=== PATIENT | male | born 1935 | race Caucasian/White ===

== ENCOUNTER 2016-12-18 11:00 | Day surgery (SDC) | payer MEDICARE, BC ==
[2016-12-18] MEDS ORDERED: Sodium Chloride 0.9% 20 ML ONE (11:17)
[2016-12-18] MEDS ORDERED: Furosemide 20 MG/2 ML VIAL SLOW IVP SCH (13:30)
[2016-12-18 18:05] VITALS: BP 127/60; TEMP 98.3
== END 2016-12-18 18:15 ==
LOC: ONC/OP 11:00
PROVIDERS: ATTEND Psychiatry & Neurology Psychiatry
PROC: 30233N1 Transfusion of Nonautologous Red Blood Cells into Peripheral Vein, Percutaneous Approach (ICD-10-PCS; principal; 2016-12-18)
DX: D64.9 Anemia, unspecified (principal); I48.0 Paroxysmal atrial fibrillation; I25.10 Atherosclerotic heart disease of native coronary artery without angina pectoris; I10 Essential (primary) hypertension; I05.0 Rheumatic mitral stenosis; E03.9 Hypothyroidism, unspecified; I42.9 Cardiomyopathy, unspecified; K21.9 Gastro-esophageal reflux disease without esophagitis; Z91.041 Radiographic dye allergy status; Z91.013 Allergy to seafood; Z79.899 Other long term (current) drug therapy; E78.5 Hyperlipidemia, unspecified; Z95.5 Presence of coronary angioplasty implant and graft; Z95.0 Presence of cardiac pacemaker; Z95.1 Presence of aortocoronary bypass graft
CPT/HCPCS: 36415; 36430; 86850; 86900; 86901; 96374; A4216; J1940; P9016

== ENCOUNTER 2016-12-28 09:11 | Day surgery (SDC) | payer MEDICARE, BC ==
[2016-12-28] MEDS ORDERED: Sodium Chloride 0.9% 20 ML ONE (09:22)
[2016-12-28] MEDS ORDERED: Furosemide 20 MG/2 ML VIAL SLOW IVP SCH (15:45)
[2016-12-28 17:42] VITALS: BP 148/66; TEMP 97.6
== END 2016-12-28 17:51 | disposition home or self-care (01) ==
LOC: ONC/OP 09:11
PROVIDERS: ATTEND Family Medicine
PROC: 30233N1 Transfusion of Nonautologous Red Blood Cells into Peripheral Vein, Percutaneous Approach (ICD-10-PCS; principal; 2016-12-28)
DX: D64.9 Anemia, unspecified (principal); I48.0 Paroxysmal atrial fibrillation; K27.9 Peptic ulcer, site unspecified, unspecified as acute or chronic, without hemorrhage or perforation; Q27.33 Arteriovenous malformation of digestive system vessel; I25.10 Atherosclerotic heart disease of native coronary artery without angina pectoris; I05.0 Rheumatic mitral stenosis; E03.9 Hypothyroidism, unspecified; K21.9 Gastro-esophageal reflux disease without esophagitis; I11.9 Hypertensive heart disease without heart failure; Z79.02 Long term (current) use of antithrombotics/antiplatelets; Z79.82 Long term (current) use of aspirin; Z79.899 Other long term (current) drug therapy; Z95.818 Presence of other cardiac implants and grafts; Z95.0 Presence of cardiac pacemaker; Z95.1 Presence of aortocoronary bypass graft; Z90.49 Acquired absence of other specified parts of digestive tract; Z98.890 Other specified postprocedural states; Z91.013 Allergy to seafood; Z91.041 Radiographic dye allergy status; Z91.81 History of falling; Z87.81 Personal history of (healed) traumatic fracture; Z87.891 Personal history of nicotine dependence
CPT/HCPCS: 36415; 36430; 86850; 86900; 86901; 86922; 96374; A4216; J1940; P9016

== ENCOUNTER 2017-01-12 18:28 | Emergency (ER) | payer MEDICARE, BC ==
[2017-01-12 19:16] LABS: #Eosinphils 0.1 thou/uL (0.0-0.7); #Lymphocytes 1.7 thou/uL (1.20-3.40); %Basophils 0.2 % (0.0-1.0); %Eosinophils 2.2 % (0.0-10.0); %Lymphocytes 25.3 % (21.0-51.0); Hematocrit 22.9 % (42.0-52.0); Mean Platelet Volume 8.5 fL (7.4-10.4); Red Blood Cell (RBC) Count 2.44 mill/uL (4.70-6.10); White Blood Cell (WBC) Count 6.8 thou/uL (4.8-10.8)
[2017-01-12 19:36] LABS: ALT (SGPT) 25 U/L (8-55); AST (SGOT) 37 U/L (5-34); Alkaline Phosphatase 105 U/L (40-150); Anion Gap 12 mmol/L (10-20); BUN (Urea Nitrogen) 28 mg/dL (8.4-25.7); Bilirubin, Total 0.5 mg/dL (0.2-1.2); Calc. Creatinine Clearance 0 mL/min (70-130); Calcium 8.4 mg/dL (7.8-10.44); Carbon Dioxide 25 mmol/L (23-31); Chloride 98 mmol/L (98-107); Estimated GFR-MDRD 41; Globulin 2.9 g/dL (2.4-3.5); Protein, Total 6.3 g/dL (5.8-8.1)
[2017-01-12 20:15] LABS: Troponin I 0.011 ng/mL (< 0.028)
[2017-01-12 22:55] LABS: Bilirubin Negative (Negative); Blood, Urine Negative (Negative); Glucose, Urine (Dipstick) Negative (Negative); Ketone, Urine Negative (Negative); Nitrite Negative (Negative); Protein, Urine (Dipstick) Negative (Neg-Trace); Urobilinogen 0.2 mg/dL (0.2-1.0)
== END 2017-01-13 01:40 | disposition home or self-care (01) ==
LOC: ERS 18:28
DX: D64.9 Anemia, unspecified (principal); I25.2 Old myocardial infarction; E78.5 Hyperlipidemia, unspecified; I10 Essential (primary) hypertension; Z87.891 Personal history of nicotine dependence; Z79.82 Long term (current) use of aspirin; Z79.899 Other long term (current) drug therapy
CPT/HCPCS: 36415; 36430; 80053; 81003; 82553; 84484; 85610; 85730; 86850; 86900; 86901; 93005; P9016

== ENCOUNTER 2017-01-15 08:22 | Inpatient (IN) | payer MEDICARE, BC ==
[2017-01-15 10:34] LABS: #Eosinphils 0.1 thou/uL (0.0-0.7); #Lymphocytes 1.7 thou/uL (1.20-3.40); #Monocytes 0.8 thou/uL (0.11-0.59); #Neutrophils 4.8 thou/uL (1.40-6.50); %Basophils 0.5 % (0.0-1.0); %Eosinophils 1.8 % (0.0-10.0); %Lymphocytes 22.6 % (21.0-51.0); %Monocytes 10.2 % (0.0-10.0); Hematocrit 25.4 % (42.0-52.0); Mean Platelet Volume 8.2 fL (7.4-10.4); Red Blood Cell (RBC) Count 2.69 mill/uL (4.70-6.10); White Blood Cell (WBC) Count 7.4 thou/uL (4.8-10.8)
[2017-01-15 10:43] LABS: PTT 31.7 SEC (22.9-36.1); Prothrombin Time 14.3 SEC (12.0-14.7)
[2017-01-15 10:52] LABS: ALT (SGPT) 21 U/L (8-55); AST (SGOT) 32 U/L (5-34); Alkaline Phosphatase 125 U/L (40-150); Anion Gap 10 mmol/L (10-20); BUN (Urea Nitrogen) 16 mg/dL (8.4-25.7); Bilirubin, Total 0.4 mg/dL (0.2-1.2); Calc. Creatinine Clearance 0 mL/min (70-130); Calcium 8.4 mg/dL (7.8-10.44); Carbon Dioxide 25 mmol/L (23-31); Chloride 102 mmol/L (98-107); Estimated GFR-MDRD 72; Globulin 2.8 g/dL (2.4-3.5); Protein, Total 6.1 g/dL (5.8-8.1)
--- NOTE | 2017-01-15 11:08 | RAD ---
LEFT HIP 2 VIEWS: Date: 01/15/17 HISTORY: Fall. COMPARISON: None. FINDINGS: Exam is severely limited due to technique. There appears to be a fracture of the acetabulum with clif tabular protrusion. 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 There is also possibly a fractur e through the basicervical femoral neck. Cortical irregularity is noted of the superior and inferior pubic rami. IMPRESSION: 1. Limited examination. There is concern for fracture of the basicervical femoral neck as well as o f the left acetabulum. There is also some cortical indistinctness of the superior inferior pubic valentino i. CT may be helpful. 2. Severe degenerative disease of the left hip. 3. The left acetabular fracture can be seen on the 10/19/16 study. The femoral neck fracture appears new. POS: [facility]
--- NOTE | 2017-01-15 13:22 | RAD ---
RADIOGRAPH LEFT KNEE 2 VIEWS: Date: 01/15/17 HISTORY: 81-year-old male status post acute traumatic injury to the left knee, from fall. FINDINGS: In general, at least a 3 view, and preferably a 4 view, radiograph should be obtained for trauma, to increase the sensitivity for the detection of nondisplaced and mildly displaced fracture. No grossl y displaced fracture is identified. There is diffuse osteopenia. Moderate to severe joint space narr owing at the medial compartment with only mild bony hypertrophy. Mild joint space narrowing at the l ateral compartment. No large osteophytes. IMPRESSION: 1. No fracture identified. 2. Osteopenia. 3. High grade joint space narrowing in the medial compartment. POS: [facility]
[2017-01-15] MEDS ORDERED: Ondansetron ODT 4 MG TAB SL PRN (13:43)
[2017-01-15] MEDS ORDERED: Ondansetron HCl/PF 4 MG/2 ML Vial IVP PRN ×2 (13:43→14:20)
[2017-01-15] MEDS ORDERED: Dextrose 50% Abboject 50 ML SYRINGE SLOW IVP PRN (14:20)
[2017-01-15] MEDS ORDERED: Dextrose 5% in Water 1,000 ML IV PRN (14:20)
[2017-01-15] MEDS ORDERED: Ondansetron ODT 4 MG TAB PO PRN (14:20)
[2017-01-15] MEDS ORDERED: HYDROcodone/Acetaminophen 10/325 mg Tablet PO PRN (14:20)
[2017-01-15] MEDS ORDERED: Morphine Sulfate 2 MG/ML SYRINGE IVP PRN (14:20)
[2017-01-15] MEDS ORDERED: Insulin Regular 300 UNITS/3 ML VIAL SC PRN (14:20)
[2017-01-15] MEDS: HYDROcodone/Acetaminophen 10/325 mg Tablet PO PRN (15:37)
[2017-01-15] MEDS: Ketorolac Tromethamine 30 MG/ML VIAL IVP SCH (18:52)
[2017-01-15] MEDS: traMADol HCl 50 MG TAB PO SCH (18:54)
--- NOTE | 2017-01-15 20:58 | HP ---
REQUESTING PHYSICIAN: Lakisha Salgado MD ATTENDING SURGEON: Lex Levin DO CONSULTATIONS: Orthopedics, Robinson Castle M.D. HISTORY OF PRESENT ILLNESS: The patient is an 81-year-old man who has significant multiple medical problems, who stays at home with his son and his and this morning, he was noted to have rolled off the couch, landing on his left knee, causing immediate pain to his left knee and more so to his left hip. The patient was brought to the emergency department, evaluated and examined and noted to have a right femoral neck fracture at which time we were asked to evaluate the patient for admission and obtain an orthopedic consultation. ALLERGIES: IODINE. CURRENT MEDICATIONS: Amiodarone, nitroglycerin, aspirin, atorvastatin, Coreg, iron, vitamin C, Lasi x, levothyroxine, lisinopril, potassium, and Brilinta. PAST SURGICAL HISTORY: Cardiac pacemaker placement, valve replacement, hyperlipidemia, hypertension . The patient wears a LifeVest. In addition to his pacemaker, he has implanted his pacemaker. SOCIAL HISTORY: The patient quit smoking more than 10 years ago. Drinks almost daily per reports u p to 5 drinks per day. Denies drug use. FAMILY MEDICAL HISTORY: Coronary artery disease and hypertension. REVIEW OF SYSTEMS: A ten-point review of system is negative unless otherwise stated. PHYSICAL EXAMINATION: VITAL SIGNS: Temperature is 98.4, heart rate 74, blood pressure 136/60, respirations 20, oxygen sat uration is 96% on room air. GENERAL: The patient is resting in the hospital bed in the emergency department with a chief compla int of left hip pain, but he is alert and oriented x3. His Marvin Coma Scale is 15. HEENT: Head is normocephalic and atraumatic. Eyes: Extraocular movements are intact. PERRLA bila terally. Ears are atraumatic without discharge. Nose is atraumatic without discharge. Oropharynx is clear. NECK: Nontender. Trachea is midline. No JVD. CHEST: Clear to auscultation. HEART: Has a regular rhythm with a notable holosystolic murmur. ABDOMEN: Soft, flat and nontender. EXTREMITIES: Neurovascularly intact x4. The patient has tenderness to palpation to the left hip. BACK: Nontender and atraumatic. LABORATORY FINDINGS: White blood cell count 7.4, hemoglobin 8.1, platelets 192, hematocrit 25.4. S odium 133, potassium 4.1, chloride 102, CO2 of 25, BUN 16, creatinine 0.99, glucose 103. LFTs are u nremarkable. PT 14, INR 1.1, PTT 32. RADIOGRAPHS: Views of the left hip show a fracture of the base of the femoral neck and a left aceta bular fracture. When compared to an earlier radiograph, the patient had the acetabular fracture adina t was shown on the radiographs of 10/19/2016 with the femoral neck fracture appears new. Radiograph s of the left knee showed no fracture. ASSESSMENT AND PLAN: 1. Status post ground level fall. 2. Left femoral neck fracture. 3. Multiple cardiac-related comorbidities. 4. Acute traumatic pain. PLAN: Will be to admit the patient to the surgical floor. Due to his multiple comorbidities, he is not the best surgical candidate. The patient is known to our service before and was unable to have surgical repair secondary to his cardiac history. We will ask Dr. Castle to evaluate the patien t and give us his input risk versus benefit of surgical repair. The evaluation, examination, radiog raphic and laboratory findings were done with Dr. Levin in the emergency room and he also discussed the plan with the family and answered their questions at that time.
[2017-01-15] MEDS ORDERED: FLU VACC TS2017-18 (>65YR) 0.5 ML SYRINGE IM ONE (21:00)
[2017-01-15] MEDS: TICAGRELOR 90 MG TABLET PO SCH (21:12)
[2017-01-15] MEDS: Furosemide 40 MG TAB PO SCH (21:12)
--- NOTE | 2017-01-15 21:29 | CON ---
DATE OF CONSULTATION: 01/15/2017 CHIEF COMPLAINT: Left hip pain. HISTORY OF PRESENT ILLNESS: Mr. Costello is an 81-year-old male who has fallen this morning. He pepe ded on his left side. He had immediate pain. He was unable to ambulate. He was taken to the emerg ency department. An acute femoral neck fracture was identified. The patient has a history of left acetabulum fracture on the left side over the last several months as well. He has been ambulating o n a walker. He has severe heart disease and has a severe risk of cardiac complication with surgery. He denies any active chest pain or other symptoms. He is currently comfortable in bed. He was ad mitted recently for a gastrointestinal bleed as well. REVIEW OF SYSTEMS: Positive for mild left hip pain as per HPI, otherwise, negative 10-point review of systems. PAST MEDICAL HISTORY: 1. Previous left acetabulum fracture, nonoperative management. 2. Cardiomyopathy, status post pacemaker placement. 3. Coronary artery disease with a history of coronary artery bypass graft. 4. Hypothyroidism. 5. Gastroesophageal reflux disease. 6. Hyperlipidemia. 7. Hypertension. PAST SURGICAL HISTORY: Coronary artery bypass graft and recent colonoscopy. FAMILY MEDICAL HISTORY: Hypertension. SOCIAL HISTORY: The patient denies tobacco, alcohol, or drug use. PHYSICAL EXAMINATION: VITAL SIGNS: Temperature is 98.4, pulse 74, respiratory rate 20, oxygen saturation 97%. GENERAL: He is alert, sitting upright, in no apparent distress. HEENT: Normocephalic, atraumatic. RESPIRATORY: Breathing comfortably. ABDOMEN: Soft, nontender, and nondistended. MUSCULOSKELETAL: The patient's left hip has mild pain with motion. He is sitting with the hip in a flexed position on pillows. He is neurovascularly intact in the foot and ankle distally. SKIN: Intact. IMAGES: X-rays of the left hip demonstrate an acute basicervical femoral neck fracture. He has saadia dence of a chronic acetabulum fracture on the left hip. IMPRESSION: Femoral neck fracture in an elderly male with severe heart disease. PLAN: At this point, I have discussed with the patient. He wants to avoid surgery as much as possi ble. In fact, he says today that he strictly does not want surgery. I have reviewed other options which will include pain control and nonweightbearing on the left leg. Unfortunately, he will likely be unable to ambulate but could mobilize to a wheelchair and minimally mobilize for transfers. He wants to proceed with this plan. He is worried rightly so that he would have cardiac complications with general anesthesia. He can have adequate pain control. He can have positioning for comfort. There is no certain restriction on the position of his leg. He will likely need to be placed for pa in control and help with activities of daily living until his hip is improved. We will continue to follow.
[2017-01-16] MEDS: Ketorolac Tromethamine 30 MG/ML VIAL IVP SCH ×2 (00:57→05:21)
[2017-01-16] MEDS: traMADol HCl 50 MG TAB PO SCH ×5 (00:58→23:20)
[2017-01-16 07:00] LABS: Anion Gap 9 mmol/L (10-20); BUN (Urea Nitrogen) 17 mg/dL (8.4-25.7); Calc. Creatinine Clearance 0 mL/min (70-130); Calcium 7.8 mg/dL (7.8-10.44); Carbon Dioxide 25 mmol/L (23-31); Chloride 103 mmol/L (98-107); Estimated GFR-MDRD 73; Magnesium 1.5 mg/dL (1.6-2.6); Phosphorus 3.8 mg/dL (2.3-4.7)
[2017-01-16 07:50] LABS: Hematocrit 20.5 % (42.0-52.0); Mean Platelet Volume 7.6 fL (7.4-10.4); Red Blood Cell (RBC) Count 2.16 mill/uL (4.70-6.10); White Blood Cell (WBC) Count 5.2 thou/uL (4.8-10.8)
[2017-01-16 08:17] LABS: Band 4 % (5-11); Hypochromia SLIGHT = 6-15 cells (100X) (0-5/hpf); Neutrophil 59 % (42-75); Polychromasia SLIGHT = 2-3 cells (100X) (0-2/hpf)
[2017-01-16] MEDS: Levothyroxine Sodium 25 MCG TAB PO SCH (08:33)
[2017-01-16] MEDS: Aspirin 81 mg Enteric Coated Tablet PO SCH (08:47)
[2017-01-16] MEDS: Potassium Chloride 20 MEQ TAB PO SCH ×2 (08:47→17:06)
[2017-01-16] MEDS: Carvedilol 3.125 MG TAB PO SCH ×2 (08:47→17:06)
[2017-01-16] MEDS: Furosemide 40 MG TAB PO SCH ×2 (08:48→20:08)
[2017-01-16] MEDS: Lisinopril 5 MG TAB PO SCH (08:50)
[2017-01-16] MEDS: Ferrous Sulfate 325 MG TAB PO SCH (08:51)
[2017-01-16] MEDS: Ascorbic Acid 500 mg Chewable Tablet PO SCH (08:52)
[2017-01-16] MEDS: TICAGRELOR 90 MG TABLET PO SCH ×2 (08:53→20:08)
[2017-01-16] MEDS: Atorvastatin Calcium 20 MG TAB PO SCH (09:05)
[2017-01-16] MEDS: HYDROcodone/Acetaminophen 10/325 mg Tablet PO PRN (09:19)
--- NOTE | 2017-01-16 12:10 | PRG-2 ---
DATE OF SERVICE: 01/16/2017 SUBJECTIVE: This is an 81-year-old male that is status post fall from couch and found to have a lef t femoral neck fracture. Today, he reports doing well, was up working with PT, OT standing and nonw eightbearing. Reports pain being well controlled. He denies any feeling weak or dizzy or lighthead ed. The patient will likely need placement. He said he has been to [facility] before and wishes to go back to [facility]. No other concerns or complaints at this time. OBJECTIVE: VITAL SIGNS: Temperature is 98.1, pulse is 68, respirations 18, O2 sats 95% on room air, blood pres sure is 97/55. GENERAL: Alert and oriented x3, atraumatic, normocephalic. Resting in bed. RESPIRATORY: Clear to auscultation bilaterally. Symmetric chest expansion. Nonlabored breathing. CARDIOVASCULAR: He has a regular rhythm with a notable holosystolic murmur. ABDOMEN: Soft, flat, nontender. No masses or distention noted. EXTREMITIES: Neurovascularly intact x4 and able to move all extremities. NEURO: No new focal neuro deficit. LABORATORY DATA: White blood cell count was 5.2, hemoglobin was 6.5, hematocrit 20.5, platelet coun t was 152. MCV is 95.1. Sodium was 133, potassium 3.9, chloride was 103, carbon dioxide was 25, BU N was 17, creatinine 0.98, glucose 106, calcium 7.8, phosphorus 2.8, and magnesium 1.5. No new images to be reviewed at this time. ASSESSMENT AND PLAN: 1. Status post ground level fall. 2. Left femoral neck fracture. 3. Multiple cardiac related comorbidities. 4. Traumatic pain. 5. Anemia. Due to the patient's heart history, he is not a good candidate for surgery, so we will go with nonop erative treatment at this time per Orthopedic Surgery. We will continue him on current pain regimen and assess pain and treat as needed. We will continue to monitor vital signs. The patient's hemoglobin was low at 6.5. We will transfuse him with 1 unit of blood. We will repla ce his electrolytes. We will continue to check labs as needed and replace as needed. The patient w ishes to go back to [facility], so will await placement for him to see if he can go back to [facility] for some rehab and long-term care as he is nonoperative treatment and will need time to heal with 2 4-hour care. The patient was seen and plan of care was discussed with Dr. Lex Levin.
--- NOTE | 2017-01-16 16:56 | PQF ---
CLINICAL DOCUMENTATION IMPROVEMENT CLARIFICATION FORM: ICD-10 Updated PLEASE DO AN ADDENDUM TO THE PROGRESS NOTE WITH ANY DOCUMENTATION UPDATES OR ADDITIONS AND CARRY THROUGH TO DC SUMMARY. THANK YOU. DATE: 01/16/17 ATTN: Dr. Levin Please exercise your independent, professional judgment in responding to the clarification form. Clinical indicators are provided on the bottom of this form for your review Please check appropriate box(s): [x ] Acute blood loss anemia [ ] Chronic Anemia: [ ] Blood loss [ ] Hemolytic [ ] Simple [ ] Other [ ] Anemia of Chronic Disease (please specify) [ ] Other diagnosis [ ] Unable to determine In addition, please specify: Present on Admission (POA): [ ] Yes [ ] No [ ] Unable to determine For continuity of documentation, please document condition throughout progress notes and discharge summary. Thank You. CLINICAL INDICATORS - SIGNS / SYMPTOMS / LABS H&P: HGB 8.1 HCT 25.4 PN 01/16: HGB 6.5 HCT 20.5 ANEMIA PT'S HEMOGLOBIN WAS LOW AT 6.5. WILL TRANSFUSE HIM WITH 1 UNIT OF BLOOD. RISKS: H&P: LEFT FEMORAL NECK FRACTURE. TREATMENT: CPOE 01/16: PACKED CELLS. (This form is maintained as a part of the permanent medical record) 2014 [employer] All Rights Reserved Lashaun Garcia RN, BSN [email or web address] Office: [phone] [facility]ITAL[facility]
[2017-01-17] MEDS: traMADol HCl 50 MG TAB PO SCH ×3 (05:35→17:58)
[2017-01-17 06:06] LABS: #Eosinphils 0.3 thou/uL (0.0-0.7); #Lymphocytes 1.4 thou/uL (1.20-3.40); #Neutrophils 6.2 thou/uL (1.40-6.50); %Basophils 0.1 % (0.0-1.0); %Lymphocytes 15.7 % (21.0-51.0); Hematocrit 24.4 % (42.0-52.0); White Blood Cell (WBC) Count 8.8 thou/uL (4.8-10.8)
[2017-01-17] MEDS: Lisinopril 5 MG TAB PO SCH (09:00)
[2017-01-17] MEDS: Aspirin 81 mg Enteric Coated Tablet PO SCH (11:05)
[2017-01-17] MEDS: Potassium Chloride 20 MEQ TAB PO SCH ×2 (11:06→17:00)
[2017-01-17] MEDS: Atorvastatin Calcium 20 MG TAB PO SCH (11:06)
[2017-01-17] MEDS: Levothyroxine Sodium 25 MCG TAB PO SCH (11:06)
[2017-01-17] MEDS: Ascorbic Acid 500 mg Chewable Tablet PO SCH (11:06)
[2017-01-17] MEDS: Ferrous Sulfate 325 MG TAB PO SCH (11:06)
[2017-01-17] MEDS: TICAGRELOR 90 MG TABLET PO SCH (11:07)
[2017-01-17] MEDS: Furosemide 40 MG TAB PO SCH (11:07)
[2017-01-17] MEDS: Carvedilol 3.125 MG TAB PO SCH ×2 (11:07→17:58)
--- NOTE | 2017-01-17 12:27 | PRG ---
DATE OF SERVICE: 01/17/2017 SUBJECTIVE: No acute events overnight. The patient received 1 unit of blood and has responded appr opriately. No other issues at this time. The patient reports pain with movement, but otherwise it is controlled with medications that have been given. OBJECTIVE: VITAL SIGNS: Temperature 98.4, heart rate 58, respiratory rate 16, O2 saturation is 95% on room air , blood pressure 121/65. GENERAL: Alert and oriented x3. HEENT: Atraumatic and normocephalic. Resting in bed. RESPIRATORY: Clear bilaterally to auscultation. Symmetric chest rise and full. Nonlabored breathi ng. CARDIOVASCULAR: Regular rate and rhythm with notable holosystolic murmur. ABDOMEN: Soft, flat, nontender. No masses or distension. EXTREMITIES: Neurovascularly intact x4. Moves all 4. LABORATORY: CBC showed white count 8.8, hemoglobin 7.9, hematocrit 24.4, platelet count 167. ASSESSMENT AND PLAN: 1. Status post ground level fall. 2. Left femoral neck fracture. 3. Multiple cardiac related comorbidities. 4. Traumatic pain. 5. Anemia. Due to the patient's heart history he is not a good candidate for surgery so we will go for nonopera tive treatment at this time per Orthopedic Surgery. We will continue with his current pain regimen, assess pain and treat as needed. Continue to monitor his vital signs. We have stabilized hemoglob in at 7.9. We have initiated bowel regimen for bowel movement. At this time we are awaiting rehab clearance for discharge. The patient has been seen by Dr. Levin at bedside and he agrees with the hannah coleman plan.
[2017-01-17] MEDS ORDERED: Polyethylene Glycol 3350 17 GM Packet PO SCH (14:00)
[2017-01-17] MEDS ORDERED: Senokot S 8.6-50 MG TAB PO SCH ×2 (14:00→21:00)
[2017-01-17 15:47] VITALS: BP 116/58; TEMP 98.5
[2017-01-18] MEDS ORDERED: Polyethylene Glycol 3350 17 GM Packet PO SCH (09:00)
--- NOTE | 2017-01-18 11:13 | DIS ---
DATE OF ADMISSION: 01/15/2017 DATE OF DISCHARGE: 01/17/2017 FINAL DIAGNOSES: 1. Status post fall off a couch. 2. Femoral neck fracture. 3. Severe heart disease. 4. History of cardiomyopathy. 5. Gastroesophageal reflux disease. 6. Hypertension. HOSPITAL COURSE: The patient was admitted for pain control and was noted that the patient had a sig nificant cardiac history and was not a good candidate for surgery. The patient was then referred ov er to rehabilitation. At that time, the patient was accepted in the rehab and sent over. Dr. Scott ashraf noted that the patient is not a good candidate for surgery and then deferred the surgery. The patient then was cleared for discharge on 01/17/[address] Levin. DISCHARGE DISPOSITION: To inpatient rehabilitation. FOLLOWUP APPOINTMENTS: With Dr. Castle in 2-4 weeks. DISCHARGE CONDITION: Fair. DISCHARGE MEDICATIONS: Will be reflected of his current MAR. This is merely a trauma discharge summary, please refer to the chart for further information.
== END 2017-01-17 18:29 | DRG 536 ==
LOC: ERS 08:22 → SURG B 11:50
PROVIDERS: ADMIT Surgery; ATTEND Surgery
PROC: 30233N1 Transfusion of Nonautologous Red Blood Cells into Peripheral Vein, Percutaneous Approach (ICD-10-PCS; principal; 2017-01-16)
DX: S72.042A Displaced fracture of base of neck of left femur, initial encounter for closed fracture (principal); I42.9 Cardiomyopathy, unspecified; Z95.1 Presence of aortocoronary bypass graft; D62 Acute posthemorrhagic anemia; G89.11 Acute pain due to trauma; W08.XXXA Fall from other furniture, initial encounter; S32.402 Unspecified fracture of left acetabulum; R01.1 Cardiac murmur, unspecified; I25.10 Atherosclerotic heart disease of native coronary artery without angina pectoris; Z95.0 Presence of cardiac pacemaker; Z95.2 Presence of prosthetic heart valve; I10 Essential (primary) hypertension; K21.9 Gastro-esophageal reflux disease without esophagitis; M25.562 Pain in left knee; E78.5 Hyperlipidemia, unspecified; Z87.891 Personal history of nicotine dependence; E03.9 Hypothyroidism, unspecified
CPT/HCPCS: 36415; 36416; 36430; 80048; 80053; 81003; 82553; 83735; 84100; 84484; 85025; 85610; 85730; 86850; 86900; 86901; 93005; 94760; 96361; 96374; A4216; G8978-GP-CM; G8979-GP-CK; G8987-GO-CK; G8988-GO-CI; J1885; J2270; P9016

== ENCOUNTER 2017-02-02 16:57 | Inpatient (IN) | payer MEDICARE, BC ==
[2017-02-02] MEDS ORDERED: HYDROcodone/Acetaminophen 10/325 mg Tablet ONE (17:25)
[2017-02-02 19:22] LABS: #Eosinphils 0.1 thou/uL (0.0-0.7); #Lymphocytes 1.5 thou/uL (1.20-3.40); #Neutrophils 5.3 thou/uL (1.40-6.50); %Basophils 0.2 % (0.0-1.0); %Eosinophils 0.8 % (0.0-10.0); %Lymphocytes 19.5 % (21.0-51.0); %Monocytes 12.6 % (0.0-10.0); Hematocrit 30.4 % (42.0-52.0); Mean Platelet Volume 7.1 fL (7.4-10.4); Red Blood Cell (RBC) Count 3.34 mill/uL (4.70-6.10); White Blood Cell (WBC) Count 7.9 thou/uL (4.8-10.8)
[2017-02-02 19:29] LABS: Prothrombin Time 14.7 SEC (12.0-14.7)
[2017-02-02 19:30] LABS: PTT 31.5 SEC (22.9-36.1)
--- NOTE | 2017-02-02 19:40 | RAD ---
TWO VIEWS OF THE LEFT HIP 02/02/17 COMPARISON: 01/15/17 HISTORY: Trauma, pain. FINDINGS: There is a fracture involving the acetabular roof on the left with approximately 1.2 cm of distracti on, similar when compared to the prior exam. The obliquely oriented fracture of the left femoral nec k is again seen. It is now displaced significantly, with the distal fracture fragment displaced 2 cm laterally and demonstrating significant impaction in the 4-5 cm range. There is no evidence for dis location. IMPRESSION: Obliquely oriented fracture at the base of the left femoral neck with displacement, markedly worsene d since the prior exam. A fracture with significant displacement is seen in the region of the acetab ular roof as well, also seen on prior imaging. Orthopedic consultation is advised. POS: [facility]
[2017-02-02 19:42] LABS: ALT (SGPT) 149 U/L (8-55); AST (SGOT) 171 U/L (5-34); Alkaline Phosphatase 173 U/L (40-150); Anion Gap 14 mmol/L (10-20); BUN (Urea Nitrogen) 20 mg/dL (8.4-25.7); Bilirubin, Total 0.5 mg/dL (0.2-1.2); Calc. Creatinine Clearance 0 mL/min (70-130); Calcium 8.6 mg/dL (7.8-10.44); Carbon Dioxide 27 mmol/L (23-31); Chloride 95 mmol/L (98-107); Estimated GFR-MDRD 69; Globulin 3.5 g/dL (2.4-3.5); Protein, Total 6.6 g/dL (5.8-8.1)
--- NOTE | 2017-02-02 22:16 | HP ---
REQUESTING PHYSICIAN: Daljit Harris M.D. ATTENDING SURGEON: Lex Levin DO CONSULTATIONS: Orthopedics, Dr. Olvera. HISTORY OF PRESENT ILLNESS: The patient is an 81-year-old man known to this service, who had a prior history of falls, sustaining left hip and pelvis injuries they were all treated nonopera tively due to his significant cardiac history that made him a very poor candidate for surgical inter vention of his orthopedic injuries. The patient had just today been discharged from rehabilitation when he was transferring from his car to his wheelchair when he fell and landing on his left hip. T he patient had to be assisted by a neighbor and his to get into the house. The patient was hav ing significant pain, at which time 911 was called and the patient was brought to the Emergency Depa rtment by EMS and underwent evaluation and was noted to have a displaced left femoral neck fracture, at which time we were asked to evaluate the patient for admission and obtained an orthopedic consul tation. The patient denied any loss of consciousness or striking his head. ALLERGIES: IODINE and SHELLFISH. CURRENT MEDICATIONS: Amiodarone, aspirin, Brilinta, atorvastatin, MiraLax, furosemide, ferrous sulf ate, carvedilol, levothyroxine, lisinopril, nitroglycerin, bisacodyl, Protonix, and potassium. PAST MEDICAL HISTORY: Cardiomyopathy, status post pacemaker placement; coronary artery disease, sta tus post coronary artery bypass graft; hypothyroidism; gastroesophageal reflux disease; hyperlipidem ia and hypertension. PAST SURGICAL HISTORY: Heart valve replacement, pacemaker placement, CABG and appendectomy. Of not e, the patient wears a LifeVest for his cardiac condition. FAMILY MEDICAL HISTORY: Hypertension. SOCIAL HISTORY: The patient reports drinking alcohol daily. Denies drug use and quit smoking more than 10 years ago. The patient currently lives at home with his spouse. REVIEW OF SYSTEMS: Ten point review of systems was negative, unless otherwise stated. PHYSICAL EXAMINATION: VITAL SIGNS: Blood pressure 122/67, heart rate 69, respirations 14, temperature is 98.4, and oxygen saturation is 97% on room air. GENERAL: The patient is resting comfortably in the hospital bed sitting and states that as long as he does not move his left lower extremity, he is absolutely fine. The patient is alert and oriented x3. [place] [facility] coma scale is 15. CHEST: Clear to auscultation with good inspiratory and expiratory effort. HEART: Regular rate and rhythm with significant murmur noted. ABDOMEN: Soft, flat, nontender with active bowel sounds. Pelvis is stable. EXTREMITIES: Upper extremities show full active range of motion, strength is 5/5 and neurovascularl y intact. Right lower extremity is unremarkable and is neurovascularly intact. The left lower extr emity is markedly tender at the left hip consistent with his fracture. He is neurovascularly intact distally. His back by report is atraumatic and nontender. LABORATORY FINDINGS: White blood cell count 7.9, hemoglobin 9.6, hematocrit 30.4, platelets 368. S odium 132, potassium 4.3, chloride 95, CO2 of 27, BUN 20, creatinine 1.03, glucose 85, total bilirub in 0.5, albumin 3.1, alkaline phosphatase 173, AST 171, ALT 149. PT 15, INR 1.1, PTT 32. RADIOGRAPHIC FINDINGS: Radiographs of the left hip show an obliquely oriented fracture at the base of the left femoral neck with displacement and markedly worsening since prior exam as well as acetab ular roof fracture seen on a prior image. ASSESSMENT AND PLAN: 1. Ground level fall. 2. Left displaced femoral neck fracture. 3. Acute pain secondary to trauma. 4. Transaminitis. 5. Hyponatremia. 6. Significant coronary artery disease. Plan will be to admit the patient to telemetry unit for pain control and hydration. We will repeat his labs in the morning, pulmonary toilet, gastritis, mechanical DVT prophylaxis, Cardiology consult and await surgical decision based on Cardiology input and recommendations. The evaluation, examina tion, laboratory and radiographic findings were all done in emergency department with Dr. Levin. The patient's and the patient's family's questions were answered at that time.
[2017-02-02] MEDS ORDERED: Ondansetron HCl/PF 4 MG/2 ML Vial IVP PRN ×2 (22:37→23:13)
[2017-02-02] MEDS ORDERED: Ondansetron ODT 4 MG TAB SL PRN (22:37)
[2017-02-02] MEDS ORDERED: Acetaminophen 325 MG TAB PO PRN (22:37)
[2017-02-02] MEDS ORDERED: HYDROcodone/Acetaminophen 5/325 mg Tablet PO PRN ×2 (22:37)
[2017-02-02] MEDS ORDERED: Dextrose 5% in Water 1,000 ML IV PRN (23:13)
[2017-02-02] MEDS ORDERED: Morphine 10 MG/ML VIAL SLOW IVP PRN ×2 (23:13)
[2017-02-02] MEDS ORDERED: Ondansetron ODT 4 MG TAB PO PRN (23:13)
[2017-02-02] MEDS ORDERED: Dextrose 50% Abboject 50 ML SYRINGE SLOW IVP PRN (23:13)
[2017-02-02] MEDS: HYDROcodone/Acetaminophen 10/325 mg Tablet PO PRN (23:44)
[2017-02-02] MEDS: Cyclobenzaprine 10 MG TAB PO PRN (23:45)
[2017-02-02] MEDS: Sodium Chloride 0.9% 1,000 ML IV SCH (23:47)
[2017-02-03] MEDS ORDERED: Famotidine 20 MG TAB PO SCH (00:15)
[2017-02-03 05:45] LABS: Anion Gap 15 mmol/L (10-20); BUN (Urea Nitrogen) 18 mg/dL (8.4-25.7); Calc. Creatinine Clearance 51 mL/min (70-130); Calcium 8.5 mg/dL (7.8-10.44); Carbon Dioxide 21 mmol/L (23-31); Chloride 99 mmol/L (98-107); Estimated GFR-MDRD 82
[2017-02-03 06:00] LABS: Band 3 % (5-11); Hematocrit 34.6 % (42.0-52.0); Mean Platelet Volume 7.2 fL (7.4-10.4); Neutrophil 52 % (42-75); Red Blood Cell (RBC) Count 3.71 mill/uL (4.70-6.10); White Blood Cell (WBC) Count 8.4 thou/uL (4.8-10.8)
[2017-02-03] MEDS: Famotidine 20 MG TAB PO SCH ×2 (09:55→20:59)
[2017-02-03] MEDS: HYDROcodone/Acetaminophen 10/325 mg Tablet PO PRN ×3 (10:01→20:59)
[2017-02-03] MEDS: Sodium Chloride 0.9% 1,000 ML IV SCH ×2 (10:02→19:37)
--- NOTE | 2017-02-03 10:50 | RAD ---
CHEST ONE VIEW: HISTORY: Chest pain. Preop. COMPARISON: 01/30/2017 FINDINGS: The cardiac silhouette is magnified by projection. The pulmonary vasculature is at the upper limits of normal. The mediastinum is midline with aortic calcification, postoperative changes, and a mult ilead left subclavian cardiac electronic device. Overlying patches and electronic devices obscure d etail. No lobar consolidation or pneumothorax is apparent. Scarring and parenchymal opacity at the left lateral lung base is stable. IMPRESSION: Allowing for overlying artifact, the radiographic appearance of the chest appears stable. POS: [facility]
--- NOTE | 2017-02-03 14:37 | CON ---
DATE OF CONSULTATION: 02/03/2017 HISTORY OF PRESENT ILLNESS: Mr. Costello is an 81-year-old white male who has had multiple falls in the past. The patient sustained a fracture to the basicervical region of the proximal femur several weeks ago and was treated nonoperatively, because the patient has such significant cardiac history that he is a very poor candidate for anesthesia and surgical intervention. The patient fell again a nd had fracture of the medial wall of the acetabulum, also treated nonoperatively. The patient norm ally has to be assisted by a neighbor and his to ambulate. The patient fell again yesterday, h ad increased pain, brought to the emergency room and x-rays revealed now displaced fracture of the b asicervical region of the left proximal femur. PAST MEDICAL HISTORY AND MEDICAL ILLNESSES: The patient has severe coronary artery disease, cardiom yopathy. He has had a pacemaker placement. He has had a coronary artery bypass graft, hypothyroidi sm, hypertension, hyperlipidemia, and GERD. PAST SURGICAL HISTORY: Includes heart valve replacement, pacemaker placement, CABG, appendectomy, p atient wears a LifeVest for his cardiac condition. ALLERGIES: To IODINE and SHELLFISH. PHYSICAL EXAMINAITON: EXTREMITIES: The patient's left lower extremity, no attempts were made at movement of the left lowe r extremity. Skin over the left hip and thigh is in good condition. The patient is able to move hi s left ankle and foot. He has poor peripheral pulses. X-RAY FINDINGS: X-rays show left hip fracture with a displaced fracture at the base of the femoral neck. There is shortening of the femur. There is a fracture of the medial wall of the acetabulum a nd there is narrowing of the articular cartilage space with spurring on the lateral aspect of the ac etabulum. IMPRESSION: 1. Displaced basicervical fracture of the left proximal femur. 2. Severe cardiac disease including coronary artery disease, cardiomyopathy. PLAN: Unfortunately, the patient has a displaced fracture of the left hip daily as far as orthopedi cs is concerned. If he is able to tolerate the Anesthesia, it would be best to stabilize the hip trina int to allow the patient to get nursing care and be able to get out of bed. The trauma team has adm itted the patient and they will have a Cardiology consult to see if the patient is a candidate for t he left hip surgery.
[2017-02-03] MEDS ORDERED: Aspirin 81 mg Enteric Coated Tablet PO SCH (15:30)
[2017-02-03] MEDS ORDERED: TICAGRELOR 90 MG TABLET PO SCH ×2 (15:30→21:00)
--- NOTE | 2017-02-03 18:58 | PRG ---
DATE OF SERVICE: 02/03/2017 SUBJECTIVE: The patient is hospital day #2 status post ground level fall when he sustained a left d isplaced hip fracture. The patient is known to our service from previous falls that due to his masoud rbidities, specifically significant cardiac history, was a very poor candidate for surgical interven tion. The patient today has a significantly worse hip fracture and we will be awaiting clearance by Cardiology on how to pursue with Anesthesia and if that will be a safe option or possibly hospice o r other options may have to be explored with this patient. OBJECTIVE: VITAL SIGNS: Temperature is 98.5, heart rate 70, blood pressure 181/77, respirations 17, oxygen sat uration is 97% on room air. GENERAL: The patient is resting in bed. He is somewhat somnolent today, will answer to questions a nd is appropriate, though his affect is definitely flatter than yesterday. States that he is having some hip pain, but it is manageable at this time. The patient did tolerate a small amount of his b reakfast this morning. The patient had not yet been evaluated by Cardiology. HEART: Regular rate and rhythm with his persistent heart murmur. LUNGS: Chest is clear to auscultation bilaterally with moderate inspiratory and expiratory effort. ABDOMEN: Soft, flat, nontender. EXTREMITIES: Neurovascularly intact x4. LABORATORY FINDINGS: White blood cell count 8.1, hemoglobin 10.6, hematocrit 34.6, platelets 346. Sodium 131, potassium 4.4, chloride 99, CO2 of 21, BUN 18, creatinine is 0.89, glucose is 67. Ther e are no radiographs to review this morning. ASSESSMENT AND PLAN: 1. Status post ground level fall. 2. Left displaced hip fracture. 3. Significant cardiac disease. The plan will be to await medical clearance by Cardiology and Anesthesia. We will continue pain man agement, pulmonary toilet, gastritis and mechanical DVT prophylaxis. The evaluation was done on the telemetry unit with Dr. Levin.
--- NOTE | 2017-02-03 19:08 | CON ---
DATE OF CONSULTATION: 02/03/2017 HISTORY OF PRESENT ILLNESS: This is an 81-year-old gentleman who presents with a recurrent hip fracture. The patient is unable to give a coherent history. The patient has a long history of an ischemic cardiomyopathy. He has previously undergone coronary bypass graft surgery and mitral valve replacement. He also has a history of atrial fibrillation. The patient suffered a hip fracture earlier this year, but apparently declined to undergo surgery. He was recently suffered a ventricular arrest and underwent an emergent catheterization. He underwent emergent PTCA and stent placement. The patient was placed on Brilinta and aspirin. He did have GI bleeding on these medications. He also has had placement of AICD. The patient is sedated due to recurrence of the hip fracture. According to his , the patient had been in rehab and has had chest pain with and without exertion. PAST MEDICAL HISTORY: 1. Coronary artery disease. 2. Cardiomyopathy. 3. Hypertension. 4. Mitral valve replacement. 5. Dyslipidemia. 6. Paroxysmal atrial fibrillation. PAST SURGICAL HISTORY: Coronary artery bypass graft surgery, mitral valve replacement, appendectomy, shoulder surgery. ALLERGIES: PENICILLIN, SHELLFISH and IODINE. MEDICATIONS ON ADMISSION: Lipitor 20 at bedtime, Coreg 3.125 b.i.d., Lasix 40 b.i.d., Brilinta 90 b.i.d., Colace 1 tablet b.i.d., Synthroid 25 mcg daily, lisinopril 2.5 daily, Lipitor 20 at bedtime,and Amiodarone 200 p.o. b.i.d. FAMILY HISTORY: Noncontributory. SOCIAL HISTORY: The patient was in rehabilitation. PHYSICAL EXAMINATION: GENERAL: Confused gentleman with a blood pressure of 112/59, who was sedated. NECK: Showed no jugular venous distention. LUNGS: Clear to auscultation. HEART: Regular rate and rhythm, normal S1, S2, 1/6 systolic murmur. ABDOMEN: Nondistended. EXTREMITIES: Showed trace edema. LABORATORY DATA: Revealed him to have white blood cell count of 8.4, hemoglobin 10.6, hematocrit 34.6, platelets were 346. Sodium is 131, potassium 4.4, chloride 99, bicarbonate 21, BUN 18, creatinine is 0.89. AST was 171. His EKG revealed an electronic ventricular pacemaker. IMPRESSION: 1. Status post further hip fracture. 2. History of percutaneous transluminal coronary angioplasty and stent placement. 3. History of coronary bypass graft surgery. 4. History of mitral valve replacement. 5. Ischemic cardiomyopathy. 6. History of paroxysmal atrial fibrillation. 7. Dyslipidemia. ASSESSMENT AND PLAN: This unfortunate gentleman apparently has had worsening of his hip fracture. From a cardiac standpoint, he recently had a stent placed. He needs to remain if at all possible on Brilinta and aspirin. We will restart these medications immediately. It would certainly be at a high risk of cardiac complications for undergoing surgery. We will need to discuss the potential risks and benefits with the patient's family. We will follow this patient with you through his hospitalization. ARIELA
[2017-02-03] MEDS: TICAGRELOR 90 MG TABLET PO SCH (20:59)
[2017-02-03] MEDS: Cyclobenzaprine 10 MG TAB PO PRN (20:59)
[2017-02-04] MEDS: HYDROcodone/Acetaminophen 10/325 mg Tablet PO PRN ×3 (00:36→20:22)
[2017-02-04] MEDS ORDERED: Heparin 5,000 UNITS/ML VIAL SC SCH (01:30)
[2017-02-04] MEDS ORDERED: FLU VACC TS2017-18 (>65YR) 0.5 ML SYRINGE IM ONE (09:00)
[2017-02-04] MEDS: Heparin 5,000 UNITS/ML VIAL SC SCH ×3 (11:29→20:21)
[2017-02-04] MEDS: TICAGRELOR 90 MG TABLET PO SCH ×2 (11:29→20:21)
[2017-02-04] MEDS: Aspirin 81 mg Enteric Coated Tablet PO SCH (11:30)
[2017-02-04] MEDS: Famotidine 20 MG TAB PO SCH ×2 (11:30→20:21)
[2017-02-04] MEDS: Cyclobenzaprine 10 MG TAB PO PRN (20:23)
--- NOTE | 2017-02-04 21:17 | PRG ---
DATE OF SERVICE: 02/04/2017 SUBJECTIVE: The patient is hospital day #3 status post ground level fall in which he sustained a di splaced left hip fracture. The patient is currently awaiting cardiac clearance due to his significa nt cardiovascular disease and prior history. Dr. Ruby reviewed the case and because of the exte nsive nature of the patient's comorbidities, he felt that his primary application development team lead should get his op inion on the patient's stability for surgical intervention of this fracture. The patient was subseq uently started on heparin for VTE prophylaxis and we will allow the easiest window for surgery if th at decision is made. This was discussed with the spouse this morning during morning rounds, Dr. Charli michael explained the current plan and she was in agreement with this. PHYSICAL EXAMINATION: VITAL SIGNS: Temperature is 98.5, heart rate 73, blood pressure 163/73, respirations 22, oxygen sat uration is 98%. GENERAL: The patient is resting in bed. He has no chief complaints. He states that he ate some of his breakfast this morning, but has a decreased appetite. His pain is being controlled. LUNGS: Clear to auscultation with moderate inspiratory and expiratory effort. ABDOMEN: Soft, flat, nontender with hypoactive bowel sounds. EXTREMITIES: Neurovascularly intact x4. ASSESSMENT AND PLAN: 1. Status post ground level fall. 2. Left displaced hip fracture. 3. Significant cardiac disease. Plan will be to continue awaiting input from Dr. Whitaker in the morning and we will continue from t here. We will continue pain control, pulmonary toilet, gastritis and mechanical DVT prophylaxis in addition to his subcu heparin. The evaluation and examination were done with Dr. Levin on the telem etry unit.
[2017-02-05 05:55] LABS: PTT 60.5 SEC (22.9-36.1); Prothrombin Time 16.7 SEC (12.0-14.7)
[2017-02-05 06:06] LABS: Anion Gap 13 mmol/L (10-20); BUN (Urea Nitrogen) 12 mg/dL (8.4-25.7); Calc. Creatinine Clearance 54 mL/min (70-130); Calcium 7.8 mg/dL (7.8-10.44); Carbon Dioxide 24 mmol/L (23-31); Chloride 95 mmol/L (98-107); Estimated GFR-MDRD 86; Magnesium 1.6 mg/dL (1.6-2.6); Phosphorus 2.6 mg/dL (2.3-4.7)
[2017-02-05 06:09] LABS: Band 16 % (5-11); Hematocrit 28.6 % (42.0-52.0); Mean Platelet Volume 7.2 fL (7.4-10.4); Myelocyte 2 % (0-0); Neutrophil 65 % (42-75); White Blood Cell (WBC) Count 20.1 thou/uL (4.8-10.8)
[2017-02-05] MEDS: Aspirin 81 mg Enteric Coated Tablet PO SCH (10:29)
[2017-02-05] MEDS: Amiodarone 200 MG TAB PO SCH (10:29)
[2017-02-05] MEDS: TICAGRELOR 90 MG TABLET PO SCH ×2 (10:29→22:00)
[2017-02-05] MEDS: Heparin 5,000 UNITS/ML VIAL SC SCH ×3 (10:34→22:01)
[2017-02-05] MEDS: HYDROcodone/Acetaminophen 10/325 mg Tablet PO PRN (10:47)
[2017-02-05 12:07] LABS: Globulin 2.9 g/dL (2.4-3.5); Protein, Total 5.4 g/dL (5.8-8.1)
[2017-02-05 12:08] LABS: Bilirubin, Total 0.7 mg/dL (0.2-1.2)
[2017-02-05 12:09] LABS: Alkaline Phosphatase 138 U/L (40-150)
[2017-02-05 12:11] LABS: AST (SGOT) 62 U/L (5-34)
[2017-02-05 12:12] LABS: ALT (SGPT) 80 U/L (8-55)
--- NOTE | 2017-02-05 12:38 | PRG-2 ---
DATE OF SERVICE: 02/05/2017 ATTENDING PHYSICIAN: Dr. Lex Levin SUBJECTIVE: This is an 81-year-old man hospital day #4 status post ground level fall in which he barron stained a displaced left hip fracture. The patient is doing well this morning. He is alert and maikel ke. GCS 15. His pain is well controlled. He was approved for surgery by his primary curriculum director, Dr. Whitaker. He will be scheduled for surgery sometime tomorrow. The patient is going to continu e a regular diet today and transition to n.p.o. at midnight. The patient's son was at bedside [facility]. They were both in agreement of the plan. The patient denies any nausea, vomiting, chest pain or shortness of breath this morning. PHYSICAL EXAMINATION: VITAL SIGNS: Temperature 98.8 degrees Fahrenheit, pulse 83, respiratory rate 18, oxygen saturation 96% on room air, blood pressure 130/62. GENERAL: The patient is resting in bed. He appears to be comfortable. He did eat a small portion of his breakfast this morning. His pain is being controlled on current pain medication regimen. LUNGS: Equal rise and fall of the chest: No apparent respiratory distress. ABDOMEN: Soft, flat, nontender. EXTREMITIES: Neurovascular intact x4. ASSESSMENT AND PLAN: 1. Day #4 status post ground level fall. 2. Left displaced hip fracture. 3. Significant coronary artery disease. The patient was cleared for surgery by his primary curriculum director, Dr. Whitaker. Dr. Olvera will be taking the patient back for surgery tomorrow at some time to repair a left femoral neck fracture. T he patient will be placed n.p.o. at midnight in preparation for the surgery. The patient currently on subcutaneous heparin t.i.d. for DVT prophylaxis. Pain is currently well controlled. Encourage t he patient to continue using incentive spirometer. Additionally, the patient is on gastrointestinal prophylaxis. The patient's son was at bedside this morning. All questions were answered. The tristen luation and examination were done with Dr. Lex Levin on the telemetry unit.
[2017-02-06 05:36] LABS: #Eosinphils 0.1 thou/uL (0.0-0.7); #Lymphocytes 1.4 thou/uL (1.20-3.40); #Monocytes 1.2 thou/uL (0.11-0.59); #Neutrophils 9.4 thou/uL (1.40-6.50); %Basophils 0.2 % (0.0-1.0); %Eosinophils 1.1 % (0.0-10.0); %Lymphocytes 11.7 % (21.0-51.0); %Monocytes 9.6 % (0.0-10.0); Hematocrit 27.8 % (42.0-52.0); Mean Platelet Volume 7.2 fL (7.4-10.4); Red Blood Cell (RBC) Count 3.07 mill/uL (4.70-6.10); White Blood Cell (WBC) Count 12.1 thou/uL (4.8-10.8)
[2017-02-06 06:13] LABS: ALT (SGPT) 63 U/L (8-55); AST (SGOT) 47 U/L (5-34); Alkaline Phosphatase 149 U/L (40-150); Anion Gap 15 mmol/L (10-20); BUN (Urea Nitrogen) 10 mg/dL (8.4-25.7); Bilirubin, Total 0.6 mg/dL (0.2-1.2); Calc. Creatinine Clearance 61 mL/min (70-130); Calcium 8.1 mg/dL (7.8-10.44); Carbon Dioxide 22 mmol/L (23-31); Chloride 96 mmol/L (98-107); Estimated GFR-MDRD Greater than 90; Globulin 3.1 g/dL (2.4-3.5); Protein, Total 5.7 g/dL (5.8-8.1)
[2017-02-06] MEDS: Heparin 5,000 UNITS/ML VIAL SC SCH (09:00)
[2017-02-06] MEDS: HYDROcodone/Acetaminophen 10/325 mg Tablet PO PRN (10:14)
[2017-02-06] MEDS: Aspirin 81 mg Enteric Coated Tablet PO SCH (10:16)
[2017-02-06] MEDS: Amiodarone 200 MG TAB PO SCH (10:16)
--- NOTE | 2017-02-06 11:35 | PQF ---
CLINICAL DOCUMENTATION IMPROVEMENT CLARIFICATION FORM: ICD-10 Updated PLEASE DO AN ADDENDUM TO THE PROGRESS NOTE WITH ANY DOCUMENTATION UPDATES OR ADDITIONS AND CARRY THROUGH TO DC SUMMARY. THANK YOU. DATE: 02/06/17 ATTN: Dr. Levin 02/07/17 Please exercise your independent, professional judgment in responding to the clarification form. Clinical indicators are provided on the bottom of this form for your review Please check appropriate box(s): x __ I (concur) with the Wound Care findings as stated below. [ ] Pressure Ulcer: (Stage I: Erythema; Stage II: Partial thickness; Stage III : Full thickness; Stage IV: Necrosis to muscle/bone) [ ] Location: Stage (I to IV): (Left Right Bilateral N/A_ ____) [ ] Location: Stage (I to IV): (Left Right Bilateral N/A___ __) [ ] No pressure ulcer diagnosis [ ] Deep tissue injury [ ] Other diagnosis [ ] Unable to determine In addition, please specify: Present on Admission (POA): [ ] Yes [ ] No [ ] Unable to determine For continuity of documentation, please document condition throughout progress notes and discharge summary. Thank You. CLINICAL INDICATORS - SIGNS / SYMPTOMS / LABS WOUND CARE ASSESS. 02/03 @0950: LEFT HEEL PRESSURE ULCER. SUSPECTED DEEP TISSUE INJURY L POSTERIOR THIGH PRESSURE ULCER STAGE II COCCYX IS STAGE I - W / BLANCHABLE & NON-BLANCHABLE AREAS RISKS: H&P: HX OF CARDIOMYOPATHY, CAD, HTN. REPORTS DRINKING ALCOHOL DAILY. LEFT DISPLACED FEMORAL NECK FX. TREATMENT: ORDER FOR WOUND CARE EVAL/TREAT CONSULT 02/02. Pre-ulcer skin changes limited to persistent focal edema (Stage 1) Abrasion, blister, partial thickness skin loss involving epidermis and/or dermis (Stage 2) Full thickness skin loss involving damage or necrosis of SQ tissue. (Stage 3) Necrosis of soft tissue through to underlying muscle, tendon, or bone. (Stage 4) Purple or maroon discolored skin or blood filled blister Thank you, Lashaun (This form is maintained as a part of the permanent medical record) 2015 [employer], [employer]. All Rights Reserved Lashaun Garcia RN, BSN [email or web address] Office: [phone] [facility]
[2017-02-06] MEDS ORDERED: Neomycin-Polymyxin 1 ML AMP ONE (14:22)
[2017-02-06] MEDS ORDERED: Midazolam HCl 2 mg/2 ml Vial ONE (14:40)
[2017-02-06] MEDS: TICAGRELOR 90 MG TABLET PO SCH (14:50)
[2017-02-06] MEDS ORDERED: Fentanyl 100 MCG/2 ML VIAL ONE (14:56)
[2017-02-06] MEDS ORDERED: CEFAZOLIN/Water 2 GM/20 ML SYRINGE ONE (15:00)
[2017-02-06] MEDS ORDERED: Succinylcholine Chloride 20 MG/ML 10 ml SYRINGE FS ONE (15:36)
[2017-02-06] MEDS ORDERED: Ondansetron HCl/PF 4 MG/2 ML Vial ONE (15:36)
[2017-02-06] MEDS ORDERED: Glycopyrrolate 0.2 MG/ML 5 ML SYRINGE ONE (15:36)
[2017-02-06] MEDS ORDERED: ePHEDrine/0.9% NaCl/PF SYRINGE 50 mg/10 ml ONE (15:36)
[2017-02-06] MEDS ORDERED: PHENYLEPHRINE-NS 100 MCG/ML 10 ML SYRINGE ONE (15:36)
--- NOTE | 2017-02-06 17:11 | PRG ---
DATE OF SERVICE: 02/06/2017 ATTENDING PHYSICIAN: Lex Levin DO SUBJECTIVE: This is an 81-year-old male, hospital day #5, status post ground-level fall, which he s ustained a displaced left hip fracture. The patient is doing well this morning. He is awake, alert , somewhat confused on some questions. He does not recall any significant pain at this time. The p atkamille was approved for surgery by his primary translator/interpreter, Dr. Whitaker yesterday. He is schedule d for surgery today. He is n.p.o. PHYSICAL EXAMINATION: VITAL SIGNS: Temperature 98.7, heart rate 78, respiratory rate 20, 98% on room air, 162/67 blood pr essure. GENERAL: The patient is resting in bed. He appears to be comfortable. LUNGS: Equal rise and fall of chest, no respiratory distress. Clear bilaterally. CARDIOVASCULAR: S1, S2, regular rate and rhythm. ABDOMEN: Soft, nontender, nondistended. EXTREMITIES: Neurovascularly intact x4. ASSESSMENT AND PLAN: Day #5 status post ground-level fall, left displaced hip fracture, significant coronary artery disease. Patient was cleared for surgery by his primary translator/interpreter, Dr. Whitaker and operating today at some point. Continue to encourage use of incentive spirometer. We wi ll reassess his pain tomorrow. Postoperatively, the patient has been seen by Dr. Levin at bedside a nd agrees to the above plan. We will continue care postoperatively.
[2017-02-06] MEDS ORDERED: Milk Of Magnesia 30 ML UDCUP PO PRN (17:22)
[2017-02-06] MEDS ORDERED: Ondansetron ODT 4 MG TAB PO PRN (17:22)
[2017-02-06] MEDS ORDERED: Cepastat Lozenges 1 LOZ PO PRN (17:22)
[2017-02-06] MEDS ORDERED: Fleet Enema 133 ML BOT PR PRN (17:22)
[2017-02-06] MEDS ORDERED: Ondansetron HCl/PF 4 MG/2 ML Vial IVP PRN (17:22)
[2017-02-06] MEDS ORDERED: Bisacodyl 10 MG SUPP PR PRN (17:22)
[2017-02-06 20:31] LABS: #Eosinphils 0.2 thou/uL (0.0-0.7); #Lymphocytes 2.5 thou/uL (1.20-3.40); #Monocytes 1.4 thou/uL (0.11-0.59); %Basophils 0.1 % (0.0-1.0); %Eosinophils 1.3 % (0.0-10.0); %Lymphocytes 13.8 % (21.0-51.0); %Monocytes 7.9 % (0.0-10.0); Hematocrit 23.9 % (42.0-52.0); Mean Platelet Volume 7.5 fL (7.4-10.4); Red Blood Cell (RBC) Count 2.63 mill/uL (4.70-6.10); White Blood Cell (WBC) Count 18.2 thou/uL (4.8-10.8)
[2017-02-06 20:37] LABS: Prothrombin Time 15.4 SEC (12.0-14.7)
[2017-02-06 20:38] LABS: PTT 42.2 SEC (22.9-36.1)
[2017-02-06] MEDS: Ferrous Gluconate 324 MG TAB PO SCH (20:44)
[2017-02-06] MEDS: Senokot S 8.6-50 MG TAB PO SCH (20:44)
[2017-02-06 20:57] LABS: Anion Gap 13 mmol/L (10-20); BUN (Urea Nitrogen) 11 mg/dL (8.4-25.7); Calc. Creatinine Clearance 61 mL/min (70-130); Calcium 7.9 mg/dL (7.8-10.44); Carbon Dioxide 22 mmol/L (23-31); Chloride 100 mmol/L (98-107); Estimated GFR-MDRD Greater than 90; Magnesium 1.5 mg/dL (1.6-2.6); Phosphorus 3.6 mg/dL (2.3-4.7)
[2017-02-06] MEDS ORDERED: Magnesium 2 GM/NS 0.9% 50 ML 2 GM in Premix Bag 1 BAG IVPB SCH (21:15)
[2017-02-06] MEDS ORDERED: Calcium Chloride 1 GM/10 ML Abboject SYRINGE IVP SCH (21:15)
[2017-02-06] MEDS ORDERED: Hydrocortisone Sod Succ/PF 100 mg/2 ml Vial IVP SCH (21:15)
--- NOTE | 2017-02-06 21:44 | OP ---
DATE OF PROCEDURE: 02/06/2017 PREOPERATIVE DIAGNOSIS: Displaced fracture of the base of the neck of the left proximal femur. POSTOPERATIVE DIAGNOSIS: Displaced fracture of the base of the neck of the left proximal femur. PROCEDURE: Open reduction internal fixation of basicervical fracture of the left proximal femur uti lizing a trochanteric fixation nail. SURGEON: Vincenzo Olvera M.D. ANESTHESIA: General. TECHNIQUE: The patient was given preoperative IV antibiotics, taken to the operating room, placed i n the supine position. Satisfactory general anesthesia was performed. The patient was placed on th e fracture table and all bony prominences were well-padded, and the left lower extremity was placed into traction through a well-padded left foot and ankle. C-arm was used to verify good alignment of the basicervical fracture in the AP, lateral and multiple oblique views. The lateral aspect of the left hip and thigh were sterilely prepped and draped in the usual fashion. A 4 cm incision was mad e proximal to the greater trochanter and under fluoroscopic visualization, a guide pin was placed th rough the greater trochanter and into the proximal femur, it was then over reamed. A trochanteric f ixation nail that measured 10 mm in diameter, 170 mm in length was then inserted into the proximal f emur at the appropriate depth through a separate 4 cm incision on the lateral aspect of the thigh. A guidepin was placed up through the trochanteric fixation nail and into the femoral neck and head. Good placement was verified again with the C-arm in AP, lateral and multiple oblique views. The gu idepin was overreamed and a 105 trochanteric fixation screw was inserted and the fracture was compre ssed. The locking mechanism was then used to lock the screw to the flavio. Also through the lateral t high incision, a locking screw was inserted into the femur and in the distal aspect of the flavio. Thi s provided excellent reduction and fixation for the fracture. Both wounds were then copiously irrig ated with antibiotic solution. They were closed using #1 Vicryl for the deeper tissue and skin was closed with skin garry. A sterile dressing was applied. The patient was transferred to the [facility] room in stable condition. ESTIMATED BLOOD LOSS: 100 mL
[2017-02-06 21:51] LABS: Troponin I 0.077 ng/mL (< 0.028)
[2017-02-07 01:11] LABS: Troponin I 0.074 ng/mL (< 0.028)
[2017-02-07 04:47] LABS: ALT (SGPT) 44 U/L (8-55); AST (SGOT) 41 U/L (5-34); Alkaline Phosphatase 125 U/L (40-150); Anion Gap 8 mmol/L (10-20); BUN (Urea Nitrogen) 14 mg/dL (8.4-25.7); Bilirubin, Total 0.8 mg/dL (0.2-1.2); Calc. Creatinine Clearance 61 mL/min (70-130); Calcium 8.7 mg/dL (7.8-10.44); Carbon Dioxide 25 mmol/L (23-31); Chloride 102 mmol/L (98-107); Estimated GFR-MDRD Greater than 90; Globulin 2.6 g/dL (2.4-3.5); Magnesium 2.1 mg/dL (1.6-2.6); Phosphorus 4.5 mg/dL (2.3-4.7); Troponin I 0.046 ng/mL (< 0.028)
[2017-02-07 05:27] LABS: Band 18 % (5-11); Hematocrit 32.1 % (42.0-52.0); Neutrophil 76 % (42-75); Red Blood Cell (RBC) Count 3.58 mill/uL (4.70-6.10); White Blood Cell (WBC) Count 14.7 thou/uL (4.8-10.8)
[2017-02-07] MEDS ORDERED: Furosemide 40 MG TAB PO SCH (07:30)
--- NOTE | 2017-02-07 07:58 | RAD ---
2 VIEWS LEFT HIP: Date: 02/06/17 COMPARISON: 02/02/17. HISTORY: Left hip fracture status post open reduction and internal fixation. FINDINGS/IMPRESSION: Two limited intraoperative fluoroscopic views of the left hip show the patient to be status post int ramedullary flavio fixation of the left femoral neck fracture. No perihardware lucency is seen. There a lso appears to be widening of the acetabulum likely secondary to a fracture of the superior aspect o f the acetabulum. POS: [facility]
--- NOTE | 2017-02-07 08:01 | RAD ---
SINGLE VIEW OF THE CHEST: Comparison: 02-02-17 History: Central line placement. FINDINGS: Single view of the chest shows an enlarged but stable cardiomediastinal silhouette. The pacemaker is unchanged in position. The patient is status post sternotomy. There is a right subclavian central v enous catheter with its tip in the superior vena cava. No pneumothorax is seen. Increased interstiti al markings are present. IMPRESSION: Status post central line placement without evidence of complication. POS: [facility]
[2017-02-07] MEDS: Ferrous Gluconate 324 MG TAB PO SCH ×2 (08:24→19:50)
[2017-02-07] MEDS: Aspirin 81 mg Enteric Coated Tablet PO SCH (08:25)
[2017-02-07] MEDS: Carvedilol 3.125 MG TAB PO SCH ×2 (08:25→17:58)
[2017-02-07] MEDS: Multivitamin W/ Minerals 1 TAB PO SCH (08:25)
[2017-02-07] MEDS: Potassium Chloride 20 MEQ TAB PO SCH (08:25)
[2017-02-07] MEDS: Amiodarone 200 MG TAB PO SCH (08:25)
[2017-02-07] MEDS: Senokot S 8.6-50 MG TAB PO SCH ×2 (08:25→19:50)
[2017-02-07] MEDS: cefTRIAXone\\ROCEPHIN 2 GM, Admixture Fee 1 EACH in Sodium Chloride 0.9% 100 ML IVPB SCH (09:11)
[2017-02-07 09:13] LABS: PTT 27.3 SEC (22.9-36.1)
[2017-02-07] MEDS: Hydrocortisone Sod Succ/PF 100 mg/2 ml Vial IVP SCH ×4 (11:43→23:15)
[2017-02-07] MEDS ORDERED: Hydrocortisone Sod Succ/PF 100 mg/2 ml Vial IVP SCH (12:00)
--- NOTE | 2017-02-07 12:10 | PRG ---
DATE OF SERVICE: 02/07/2017 SUBJECTIVE: Mr. Costello is an 81-year-old man with significant comorbidities including severe coronary arterial disease and profound cardiomyopathy. He has a history of paroxysmal atrial fibrillation, who has been on anticoagulation. He is status post mitral valve replacement as well. He underwent a high risk open reduction internal fixation of left proximal femur fracture. Postoperatively, the patient was admitted to the Intensive Care Unit. Overnight, he has got no cardiac issues. Urinary output was stable up until early this morning when the patient developed some oliguria. He is awake and alert, reports adequate pain control. The patient denies any syncope or dyspnea. PHYSICAL EXAMINATION: VITAL SIGNS: Includes blood pressure 138/46, pulse 83, respirations 16, temperature is 97.7 degrees Fahrenheit, oxygen saturation is 100% on 2 liters by nasal cannula oxygen. HEENT EXAMINATION: Reveals normocephalic and atraumatic. Pupils are equal, round, and reactive to light and accommodation. Extraocular muscles are intact bilaterally. He has no jugular venous distention noted. HEART: Reveals irregular rhythm, but rate controlled. LUNGS: Clear to auscultation bilaterally. Breathing is regular and unlabored. ABDOMEN: Soft, nontender, nondistended. Bowel sounds in all 4 quadrants appear normoactive. EXTREMITIES: Reveals 2+ radial and pedal pulses bilaterally. He has no ankle edema at present. NEUROLOGICAL EXAMINATION: Reveals no focal deficits present. PERTINENT LABORATORY FINDINGS: Include a CBC with 14,700 white blood cells, hemoglobin 10.4, hematocrit is 32.1, platelet count is 238,000. Metabolic profile: Sodium 131, potassium is 4.3, chloride is 102, bicarbonate is 25, BUN 14, creatinine is 0.75, glucose 156. AST and ALT noted at 41 and 44 respectively. Serum cortisol level was 12.20 this morning. IMPRESSION: 1. Postoperative day #1, status post open reduction internal fixation, left proximal femur fracture. 2. Postoperative acute renal insufficiency. 3. History of coronary arterial disease. 4. Cardiomyopathy. 5. Acute blood loss anemia PLAN: 1. We will transduce the central venous catheter for central venous pressure and determine if the patient needs an increase in fluid resuscitation versus initiation of gentle diuresis. The patient is, otherwise, hemodynamically stable at this time. 2. We will initiate physical and occupational therapy. [facility]
[2017-02-07] MEDS ORDERED: Sodium Chloride 0.9% 500 ML IV SCH (13:30)
[2017-02-07 13:44] LABS: Hematocrit 29.4 % (42.0-52.0); Mean Platelet Volume 8.1 fL (7.4-10.4); Red Blood Cell (RBC) Count 3.26 mill/uL (4.70-6.10); White Blood Cell (WBC) Count 10.1 thou/uL (4.8-10.8)
[2017-02-07 14:03] LABS: Anion Gap 15 mmol/L (10-20); BUN (Urea Nitrogen) 17 mg/dL (8.4-25.7); Calc. Creatinine Clearance 51 mL/min (70-130); Calcium 7.9 mg/dL (7.8-10.44); Carbon Dioxide 18 mmol/L (23-31); Chloride 100 mmol/L (98-107); Estimated GFR-MDRD 68; Magnesium 2.1 mg/dL (1.6-2.6); Phosphorus 4.1 mg/dL (2.3-4.7)
[2017-02-07 14:13] LABS: Band 8 % (5-11); Hypochromia SLIGHT = 6-15 cells (100X) (0-5/hpf); Neutrophil 85 % (42-75)
--- NOTE | 2017-02-07 17:49 | CON ---
DATE OF CONSULTATION: 02/07/2017 ELECTROPHYSIOLOGY CONSULTATION PROBLEMS: 1. History of ventricular fibrillation arrest in the setting of non-ST elevation myocardial infarctionin August 2016. A. Currently on LifeVest use and amiodarone for suppression. 2. Chronic systolic congestive heart failure with ischemic cardiomyopathy. A. Prior history of coronary artery bypass grafting surgery and stent placements. B. History of reduced LVEF, LVEF of 35%-40% in the past, but now LVEF improved to 40%-45%. 3. Current admission with hip fracture requiring a repair, performed yesterday , this was due to a slip and fall. 4. Chronic indwelling biventricular pacemaker with Medtronic device. A. No atrial or ventricular arrhythmias are documented. 5. History of severe mitral regurgitation, mild aortic and mitral regurgitation based on echocardiogram in 01/21/2013. 6. Prior history of falls. 7. History of IODINE allergy with anaphylaxis. ALLERGIES: SHRIMP, IODINE, SHELLFISH causing anaphylaxis. MEDICATIONS AT HOME: Include lisinopril, furosemide, ferrous sulfate, levothyroxine, atorvastatin, Biscolax, nitroglycerin, carvedilol, ticagrelor, pantoprazole which is Protonix, Tylenol, multivitamins, ascorbic acid, potassium chloride, polyethylene glycol, Senokot, aspirin, and amiodarone 200 mg twice a day. SUBJECTIVE: Mr. Costello has been readmitted to the hospital due to another episode of slip and fall and dislocating his hip which required urgent repair. He has done fair from the cardiac standpoint, though in the meantime he did not seems to be passing out. Although he was wearing his LifeVest, he did not have any ICD shocks. He had no stroke-like symptoms, no neurological deficits, no fever, chills, or cough. No PND or orthopnea noted. No dizziness or loss of consciousness. REVIEW OF SYSTEMS: Rest of 12-point review of systems otherwise unremarkable. PAST MEDICAL HISTORY: As above. Also includes history of GI bleed on aspirin and Brilinta. Mitral valve replacement, shoulder surgery, appendectomy, bypass surgery noted. SOCIAL HISTORY: The patient denies smoking, ETOH, or drug abuse. FAMILY HISTORY: Noncontributory. OBJECTIVE DATA: VITAL SIGNS: Blood pressure 141/78, heart rate 112, respirations 20, temperature 97.7 degrees Fahrenheit. GENERAL: Reveals an alert, oriented, elderly man who is recovering from hip surgery yesterday, is extubated and doing well. NECK: Supple. Jugular veins are not distended. CHEST: Coarse without crackles. CARDIOVASCULAR: Heart sounds are regular to rate and rhythm. No murmur or gallop. ABDOMEN: Benign. Bowel sounds positive. EXTREMITIES: Lower extremities without edema, clubbing, or cyanosis. SKIN: Without rash. DATABASE: The EKG is reviewed revealing the sinus rhythm with ventricular pacing. No ventricular arrhythmias noted. Interrogation of his biventricular pacing revealed Medtronic biventricular device. No ventricular arrhythmias adequately parameters are seen. Battery voltage is also adequate. LABORATORY DATA: White count is 14.7, hemoglobin 10.4, platelet count is 238. Sodium 131, potassium 4.3, BUN is 14, creatinine 0.75. INR is 1.1. ASSESSMENT AND PLAN: Mr. Costello is a pleasant 81-year-old man with a prior history of congestive heart failure and ischemic cardiomyopathy, had a ventricular fibrillation arrest in the setting of acute non-ST elevation myocardial infarction requiring revascularization at that time. Since then, he has done well on the amiodarone and the LifeVest. He had no recurrent events. He has no sustained ventricular arrhythmias and left ventricular function has improved to 40%-45%. We discussed the treatment options. At this point, it is reasonable to consider discontinuing LifeVest use. Also, amiodarone use likely could be stopped as well, although I would probably wait until going through the orthopedic surgery recovery period. Also, monitoring of recurrent atrial arrhythmias would be prudent. I do not see a benefit from an EP study at this point. These issues were discussed with the patient and his son. They agreed. We will follow up with you. Thank you for allowing me to participate in the care of this patient. ARIELA
--- NOTE | 2017-02-07 17:50 | PRG ---
DATE OF SERVICE: 02/07/2017 SUBJECTIVE: Mr. Costello underwent open reduction and internal fixation of a basicervical fracture o f the left proximal femur utilizing a trochanteric fixation nail. This was performed yesterday. Th e patient states that he has some pain in the left hip, but is tolerating it very well. He appears mentally to be much clear and answers questions appropriately. OBJECTIVE: VITAL SIGNS: Last blood pressure 137, systolic. Respiratory rate is 24. Heart rate is 83. LABORATORY DATA: The patient's hemoglobin dropped to a low of 7.6 last night. He was given 2 units packed red blood cells. His last laboratory was performed at 1:30 this afternoon. His hemoglobin was 9.6. ASSESSMENT AND PLAN: The incision on the lateral aspect of the left hip and thigh showed that the i ncisions are healing very well. There is no active drainage. The left lower extremity is neurovasc ularly intact. The patient will increase his activities as far as getting out of bed and sit in a chair as tolerate d and will be directed by physical therapy.
[2017-02-07] MEDS: Atorvastatin Calcium 20 MG TAB PO SCH (19:50)
[2017-02-08 04:17] LABS: #Monocytes 0.9 thou/uL (0.11-0.59); #Neutrophils 6.6 thou/uL (1.40-6.50); %Basophils 0.1 % (0.0-1.0); %Eosinophils 0.2 % (0.0-10.0); %Monocytes 10.6 % (0.0-10.0); Hematocrit 22.1 % (42.0-52.0); Mean Platelet Volume 7.5 fL (7.4-10.4); Red Blood Cell (RBC) Count 2.47 mill/uL (4.70-6.10); White Blood Cell (WBC) Count 8.6 thou/uL (4.8-10.8)
[2017-02-08 04:44] LABS: ALT (SGPT) 28 U/L (8-55); AST (SGOT) 36 U/L (5-34); Alkaline Phosphatase 118 U/L (40-150); Anion Gap 12 mmol/L (10-20); BUN (Urea Nitrogen) 16 mg/dL (8.4-25.7); Bilirubin, Total 0.5 mg/dL (0.2-1.2); Calc. Creatinine Clearance 66 mL/min (70-130); Calcium 7.7 mg/dL (7.8-10.44); Carbon Dioxide 20 mmol/L (23-31); Chloride 100 mmol/L (98-107); Estimated GFR-MDRD Greater than 90; Globulin 2.4 g/dL (2.4-3.5); Protein, Total 4.7 g/dL (5.8-8.1)
[2017-02-08] MEDS: Hydrocortisone Sod Succ/PF 100 mg/2 ml Vial IVP SCH ×3 (05:01→18:31)
[2017-02-08 05:04] LABS: Hematocrit 22.1 % (42.0-52.0)
[2017-02-08] MEDS: Amiodarone 200 MG TAB PO SCH (08:07)
[2017-02-08] MEDS: Senokot S 8.6-50 MG TAB PO SCH ×2 (08:07→21:22)
[2017-02-08] MEDS: Multivitamin W/ Minerals 1 TAB PO SCH (08:07)
[2017-02-08] MEDS: cefTRIAXone\\ROCEPHIN 2 GM, Admixture Fee 1 EACH in Sodium Chloride 0.9% 100 ML IVPB SCH (08:07)
[2017-02-08] MEDS: Carvedilol 3.125 MG TAB PO SCH ×2 (08:07→16:54)
[2017-02-08] MEDS: Aspirin 81 mg Enteric Coated Tablet PO SCH (08:07)
[2017-02-08] MEDS: Potassium Chloride 20 MEQ TAB PO SCH (08:07)
[2017-02-08] MEDS: Ferrous Gluconate 324 MG TAB PO SCH ×2 (08:07→21:22)
[2017-02-08] MEDS: Levothyroxine Sodium 25 MCG TAB PO SCH (08:08)
[2017-02-08] MEDS: TICAGRELOR 90 MG TABLET PO SCH (08:08)
[2017-02-08] MEDS ORDERED: Furosemide 40 MG/4 ML VIAL SLOW IVP SCH (09:00)
--- NOTE | 2017-02-08 12:19 | PRG ---
DATE OF SERVICE: 02/08/2017 ATTENDING PHYSICIAN: Ivan Mcgee M.D. SUBJECTIVE: No acute events overnight. Patient is doing well. No acute distress in the bed. The patient reports his pain is controlled. He denies any chest pain, shortness of breath at this time. OBJECTIVE: VITAL SIGNS: Blood pressure 115/67, heart rate 87, respiratory rate 21, 100% on room air, 98.3 on t emperature. GENERAL: No acute distress. NECK: No JVD, no masses. Trachea is midline. PULMONARY: Clear bilaterally to auscultation. CARDIOVASCULAR: Regular rate and rhythm. ABDOMEN: Soft, nontender, nondistended. Tenderness toward the left hip greater than the right. EXTREMITIES: No edema. Positive pulses x4 extremities, weaker on the left side than the right, mor e or less look like chronic. LABORATORY DATA: WBC 8.6, hemoglobin 7.3, hematocrit 22.1, and platelet count 222. Chemistry: Sod ium 127, potassium 4.5, chloride 100, bicarbonate 20, BUN 16, creatinine 0.8, glucose 142. ASSESSMENT AND PLAN: An 81-year-old male status post fall, postoperative day #2 from open reduction and internal fixation of left proximal femur. PLAN: Dr. Cochran is on board for critical care support. He will recheck his hemoglobin at 3 o'jordi ck. H will be initiated on Lasix therapy. We will discontinue Barclay in 6 hours post Lasix administ ration. Continue mobilizing with PT and OT. Will remain in ICU at this time and the patient has be en seen by Dr. Cochran at bedside as well as Dr. Mcgee agrees with the above plan. We will also o rder a.m. labs in the morning to follow up with his trends as well.
[2017-02-08 15:28] LABS: Anisocytosis SLIGHT = 6-15 cells (100X) (0-5/hpf); Band 15 % (5-11); Hypochromia SLIGHT = 6-15 cells (100X) (0-5/hpf); Mean Platelet Volume 7.5 fL (7.4-10.4); Neutrophil 68 % (42-75); Ovalocytes SLIGHT = 2-5 cells (100X) (0-1/hpf); Red Blood Cell (RBC) Count 2.45 mill/uL (4.70-6.10); Tear Drops SLIGHT = 2-5 cells (100X) (0-1/hpf); White Blood Cell (WBC) Count 13.2 thou/uL (4.8-10.8)
--- NOTE | 2017-02-08 16:09 | PRG ---
DATE OF SERVICE: 02/08/2017 SERVICE: Pulmonary Medicine. INTERVAL HISTORY: The patient is doing outstanding from a respiratory standpoint. He denies any ch est pain or difficulty breathing. That being said, his hemoglobin dropped by 2 grams yesterday. He was actually given 2 units of blood and made an initial appropriate response, but subsequently drop ped back off. Otherwise, there were no overnight events. He did have some bowel movements later th is morning that had what appeared to be fresh blood in them. PHYSICAL EXAMINATION: VITAL SIGNS: Afebrile, pulse 87, blood pressure 136/56, respirations 19, saturation 100% on room ai r. GENERAL: Patient is awake, alert, in no apparent distress. LUNGS: Excellent air entry with no prolonged expiratory phase, wheezing, rhonchi or crackles. HEART: Normal rate and regular. ABDOMEN: Soft, nontender, nondistended. Bowel sounds positive. MUSCULOSKELETAL: No cyanosis or clubbing. There is trace pitting in the bilateral lower extremitie s. GENITOURINARY: Barclay catheter in place. NEUROLOGIC: There is some subtle weakness in the left upper and lower extremity compared to the rig ht.. LABORATORY DATA: Hemoglobin 7.3 and roughly stable compared to this morning. WBC 8.6. INR 1.1. P latelets 222,000. Basic metabolic profile is essentially unremarkable except for sodium of 127. T is 36. Gram stain of the penis is growing Pseudomonas aeruginosa. Fecal occult blood is certainl y positive, but it was grossly positive. ASSESSMENT: 1. Acute blood loss anemia. 2. Chronic systolic heart failure. 3. Gastrointestinal bleed, suspected. 4. Hip fracture on the left, status post open reduction and internal fixation, postoperative day 2. PLAN: We will repeat hemoglobin this afternoon and transfuse him to keep him above 7. We will disc ontinue antiplatelet and anticoagulation medications for the time being. His INR was fine. We will transfuse him a unit of platelets if Dr. Whitaker is okay with it. We will also work on his streng th today. He will remain in the ICU for the next 24 hours given the acute changes that were identif heather. Currently, however, he does remain hemodynamically stable. If he is not, we will empirically give him a unit or two of blood.
[2017-02-08] MEDS: Tamsulosin HCl 0.4 MG CAP PO SCH (21:22)
[2017-02-08] MEDS: Atorvastatin Calcium 20 MG TAB PO SCH (21:22)
[2017-02-09] MEDS: Hydrocortisone Sod Succ/PF 100 mg/2 ml Vial IVP SCH ×4 (00:33→17:02)
[2017-02-09 04:17] LABS: #Lymphocytes 0.8 thou/uL (1.20-3.40); #Monocytes 0.7 thou/uL (0.11-0.59); #Neutrophils 6.5 thou/uL (1.40-6.50); %Basophils 0.1 % (0.0-1.0); %Eosinophils 0.2 % (0.0-10.0); %Lymphocytes 10.3 % (21.0-51.0); Hematocrit 18.6 % (42.0-52.0); Mean Platelet Volume 7.5 fL (7.4-10.4); Red Blood Cell (RBC) Count 2.09 mill/uL (4.70-6.10); White Blood Cell (WBC) Count 8.1 thou/uL (4.8-10.8)
[2017-02-09 04:49] LABS: ALT (SGPT) 29 U/L (8-55); AST (SGOT) 41 U/L (5-34); Alkaline Phosphatase 113 U/L (40-150); Anion Gap 8 mmol/L (10-20); BUN (Urea Nitrogen) 14 mg/dL (8.4-25.7); Bilirubin, Total 0.4 mg/dL (0.2-1.2); Calc. Creatinine Clearance 79 mL/min (70-130); Calcium 7.8 mg/dL (7.8-10.44); Carbon Dioxide 22 mmol/L (23-31); Chloride 101 mmol/L (98-107); Estimated GFR-MDRD Greater than 90; Globulin 2.4 g/dL (2.4-3.5); Magnesium 1.5 mg/dL (1.6-2.6); Protein, Total 4.7 g/dL (5.8-8.1)
[2017-02-09] MEDS: Levothyroxine Sodium 25 MCG TAB PO SCH (05:23)
[2017-02-09] MEDS: Carvedilol 3.125 MG TAB PO SCH ×2 (08:00→16:09)
[2017-02-09] MEDS: Potassium Chloride 20 MEQ TAB PO SCH (08:02)
[2017-02-09] MEDS: Multivitamin W/ Minerals 1 TAB PO SCH (08:04)
[2017-02-09] MEDS: Ferrous Gluconate 324 MG TAB PO SCH ×2 (08:04→21:27)
[2017-02-09] MEDS: Amiodarone 200 MG TAB PO SCH (08:04)
[2017-02-09] MEDS: Senokot S 8.6-50 MG TAB PO SCH ×2 (08:07→21:28)
[2017-02-09] MEDS ORDERED: POTASSIUM PHOSPHATE IVPB SCH (08:30)
[2017-02-09] MEDS ORDERED: MAGNESIUM SULFATE IVPB SCH (08:30)
[2017-02-09] MEDS ORDERED: [UNRECOGNIZED DRUG - OTHER] IVPB SCH (08:30)
--- NOTE | 2017-02-09 08:53 | CON ---
DATE OF CONSULTATION: 02/08/2017 REASON FOR CONSULTATION: GI bleeding. HISTORY OF PRESENT ILLNESS: Mr. Hamlet Lucia is an 81-year-old male, who is known to me for many years. The patient was placed in the last couple of months on two different occasions without GI bleeding. An EGD was done at that time. He also had a tagged RBC scan which did not show any active bleeding. The patient has been transfused off and on over the last several months. The patient has history of cardiac arrhythmia, and also cardiomyopathy. He was taking Brilinta because of the above reason and was also on aspirin. He was admitted at this time because of recent fall with hip fracture. He had surgery couple of days ago. He is off Brilinta at this time. The patient's admitting hemoglobin was 10.4, been dropping down. The patient was transfused with 2 units of blood. The patient had bleeding since thias morning. The bleeding was painless. The patient tells me he has had no bleeding for the last several months. However, the ICU nurse tells me they clean him about three times today and all three times there is fairly good amount of blood. There is no abdominal pain, nausea, or vomiting. The stool was maroonish_ and not melanous. The patient denied abdominal pain, nausea, and vomiting. The most recent hemoglobin is 7.3. He is hemodynamically stable. He denies abdominal pain, dysphagia, any heartburn, indigestion. The patient has a longstanding history of GI bleeding over the years. The patient has had bleeding diverticulosis, bleeding from the AVM from the colon, and bleeding from the small bowel itself. The bleeding has been occurring more recently because of patient being on anticoagulation. No other relevant history. ALLERGIES: SHRIMP, IODINE, SHELLFISH. SOCIAL HISTORY: The patient does not smoke or drink alcohol. MEDICAL ILLNESSES: 1. Cardiomyopathy, systolic heart failure. 2. Coronary artery bypass graft and stent placement. 3. Chronic indwelling pacemaker. 4. Mitral regurgitation, aortic regurgitation. 5. Colon polyp. 6. Bleeding peptic ulcer. 7. Bleeding from diverticular disease in the past. 8. 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 REVIEW OF SYSTEMS: The patient denies any symptoms at the present time. PHYSICAL EXAMINATION: GENERAL: Appears comfortable. VITAL SIGNS: Pulse is around 80, blood pressure 140/70. HEENT: Conjunctivae clear. NECK: Supple. No adenitis or thyromegaly noted. CARDIOVASCULAR: First and second heart sounds. LUNGS: Clear to auscultation. He has a systolic murmur. ABDOMEN: Soft, nontender. There is no organomegaly or masses. EXTREMITIES: Reveal no edema. CLINICAL IMPRESSION: Gastrointestinal bleeding, appears resolved. Last bleeding was around 12 noon, and now when I saw the pateint around 5:30, he had normal bowel movements. The patient has had multiple episodes of bleeding over the years. As he has had recent surgery, I will try not to be too aggressive with any endoscopic studies.. RECOMMENDATIONS: 1. Serial H\T\H. 2. Transfuse p.r.n. 3. If the bleeding recurs, we may have to consider endoscopic intervention. ARIELA
[2017-02-09] MEDS: Furosemide 40 MG/4 ML VIAL SLOW IVP SCH (09:25)
[2017-02-09] MEDS: cefTRIAXone\\ROCEPHIN 2 GM, Admixture Fee 1 EACH in Sodium Chloride 0.9% 100 ML IVPB SCH ×2 (10:21→10:43)
[2017-02-09] MEDS: TICAGRELOR 90 MG TABLET PO SCH (10:25)
--- NOTE | 2017-02-09 13:07 | PRG ---
DATE OF SERVICE: 02/09/2017 SERVICE: Pulmonary Medicine INTERVAL HISTORY: The patient is continuing to have drop in blood counts. His hemoglobin this morn ing was 6.3. He is a little bit more pale. That being said, he does feel okay. He denies any shor tness of breath or chest discomfort. He looks to be in no apparent distress and had no significant events on telemetry. PHYSICAL EXAMINATION: VITAL SIGNS: Afebrile, pulse 79, blood pressure 149/63, respirations 17, saturation 100% on room ai r. GENERAL: The patient is awake, alert, no apparent distress. LUNGS: Excellent air entry with no prolonged expiratory phase, wheezing or crackles. HEART: Normal rate, regular. There is a systolic murmur. ABDOMEN: Soft, nontender, nondistended. Bowel sounds positive. MUSCULOSKELETAL: No cyanosis or clubbing. No pitting in the bilateral lower extremities. NEUROLOGIC: Grossly nonfocal. LABORATORY DATA: Hemoglobin 6.3, platelet 259,000. WBC 8.1 and down trending. INR 1.1. Sodium 12 7, bicarbonate 22, anion gap 8. Basic metabolic profile is otherwise unremarkable. Magnesium and p hosphorus are both low. AST and ALT are roughly stable. Gram stain is growing Pseudomonas aerugino sa of the penis. Blood cultures negative. ASSESSMENT: 1. Chronic systolic heart failure. 2. Hip fracture on the left, status post open reduction internal fixation, postoperative day #3. 3. Gastrointestinal bleed, suspected. 4. Acute blood loss anemia. PLAN: I will continue to hold antiplatelet medications as well as anticoagulation. We will give hi m 2 more units of blood. I will also give him 1 unit of platelets now that the Brilinta active meta bolite is out of his bloodstream. I will repeat hemoglobin and hematocrit this afternoon after the blood transfusion. Magnesium and phosphorus will be replaced. If he makes appropriate response to the blood transfusion, he can be considered for transition to the floor. We will continue to diures e him call as tolerated and watch his ins and outs.
[2017-02-09] MEDS ORDERED: Sodium Phosphate 15 MMOL in Sodium Chloride 0.9% 250 ML 250 ML IVPB SCH (13:30)
[2017-02-09] MEDS ORDERED: Potassium Phosphate 15 MMOL in Sodium Chloride 0.9% 250 ML 250 ML IVPB SCH (13:45)
--- NOTE | 2017-02-09 15:22 | PRG ---
DATE OF SERVICE: 02/09/2017 SUBJECTIVE: Mr. Colton Costello is an 81-year-old male with multiple medical problems. He was admitted at this time with recent fall with left hip fracture. He underwent surgery. The melvin ent was on Brilinta until yesterday. He had been having hematochezia yesterday. 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 Blood count was 7.3 yesterday, which was stable on 3 different occasions. Down to 6.3 today. The patient no abdominal pain, no nausea or vom iting. The last BM was around 06:30 this morning. PHYSICAL EXAMINATION: GENERAL: He appears pale. He is comfortable. VITAL SIGNS: Pulse is 76, blood pressure 146/73. CARDIOVASCULAR SYSTEM AND LUNGS: Within normal limits. ABDOMEN: Soft. Abdomen is nontender. There is no organomegaly or masses. RECOMMENDATIONS: 1. Transfuse. 2. If continues to bleed, endoscopic intervention.
--- NOTE | 2017-02-09 18:13 | PRG ---
DATE OF SERVICE: 02/09/2017. SUBJECTIVE: Mr. Costello continues to have bloody bowel movement this a.m. His hemoglobin is 6.3. He has been set up for 2 units PRBC to be transfused per critical care. GI is currently following a nd is considering endoscopic evaluation of the bleeding. The patient's Brilinta is currently being held. He has remained hemodynamically stable. He localizes no complaint. OBJECTIVE: VITAL SIGNS: Pulse 91, blood pressure 108/94, respiratory rate 20, O2 sat 100% on room air, tempera ture 97.9. GENERAL: Well-developed, well-nourished, elderly appearing male, resting in bed, in no acute distre ss. PULMONARY: Normal work of breathing. Symmetric rise. CARDIOVASCULAR: Regular rate and rhythm. GASTROINTESTINAL: Abdomen is soft, nontender, nondistended. EXTREMITIES: Moves all extremities x4. NEUROLOGIC: No focal deficit noted. LABORATORY FINDINGS: WBC 8.1, hemoglobin 6.3, hematocrit 18.6, platelet count 259. Sodium 127, pot assium 4.1, chloride 101, carbon dioxide 22, BUN 14, creatinine 0.67, phosphorus 2.0, magnesium 1.5, AST 41, ALT 29, total bilirubin 0.4. No new radiographic findings. ASSESSMENT: 1. Status post ground level fall. He is postop day #3. 2. Acute traumatic pain secondary to above. 3. Acute blood loss anemia. 4. Hematochezia. 5. Antiplatelet therapy. 6. Coronary artery disease. 7. Heart failure. PLAN: Continue diuresis per Critical Care and Cardiology. Transfuse PRBCs and check post-transfusi on H\T\H. Follow up GI recommendations. Discussed Brilinta with Cardiology. Eventual disposition to inpatient rehabilitation when medically stable. Discussed with trauma attending.
[2017-02-09] MEDS: Atorvastatin Calcium 20 MG TAB PO SCH (21:27)
[2017-02-09] MEDS: Tamsulosin HCl 0.4 MG CAP PO SCH (21:28)
[2017-02-10] MEDS: Hydrocortisone Sod Succ/PF 100 mg/2 ml Vial IVP SCH ×4 (00:58→21:02)
[2017-02-10] MEDS: Levothyroxine Sodium 25 MCG TAB PO SCH (05:41)
[2017-02-10 05:58] LABS: #Monocytes 1.3 thou/uL (0.11-0.59); #Neutrophils 10.6 thou/uL (1.40-6.50); %Basophils 0.1 % (0.0-1.0); %Eosinophils 0.1 % (0.0-10.0); %Monocytes 10.3 % (0.0-10.0); Hematocrit 26.4 % (42.0-52.0); Mean Platelet Volume 7.2 fL (7.4-10.4); Red Blood Cell (RBC) Count 2.96 mill/uL (4.70-6.10)
[2017-02-10 06:24] LABS: ALT (SGPT) 31 U/L (8-55); AST (SGOT) 41 U/L (5-34); Alkaline Phosphatase 115 U/L (40-150); Anion Gap 9 mmol/L (10-20); BUN (Urea Nitrogen) 14 mg/dL (8.4-25.7); Bilirubin, Total 0.7 mg/dL (0.2-1.2); Calc. Creatinine Clearance 78 mL/min (70-130); Calcium 8.1 mg/dL (7.8-10.44); Carbon Dioxide 26 mmol/L (23-31); Chloride 102 mmol/L (98-107); Estimated GFR-MDRD Greater than 90; Globulin 2.6 g/dL (2.4-3.5); Protein, Total 5.2 g/dL (5.8-8.1)
[2017-02-10] MEDS: Senokot S 8.6-50 MG TAB PO SCH ×2 (08:32→21:02)
[2017-02-10] MEDS: Potassium Chloride 20 MEQ TAB PO SCH (08:32)
[2017-02-10] MEDS: Multivitamin W/ Minerals 1 TAB PO SCH (08:32)
[2017-02-10] MEDS: Amiodarone 200 MG TAB PO SCH (08:33)
[2017-02-10] MEDS: Furosemide 40 MG/4 ML VIAL SLOW IVP SCH (08:33)
[2017-02-10] MEDS: Ferrous Gluconate 324 MG TAB PO SCH ×2 (08:33→21:01)
[2017-02-10] MEDS: Carvedilol 3.125 MG TAB PO SCH ×2 (08:33→17:18)
--- NOTE | 2017-02-10 08:43 | PRG ---
DATE OF SERVICE: 02/10/2017 SERVICE: Pulmonary Medicine. INTERVAL HISTORY: The patient is doing great from a respiratory standpoint. He is breathing comfor tably. He has no specific complaints of fevers, chills, nausea, vomiting or diarrhea. Otherwise, antoni ba has returned to his usual state of health. He has much improved color today and his mentation is fantastic. PHYSICAL EXAMINATION: VITAL SIGNS: Afebrile, pulse 68, blood pressure 146/59, respirations 19, saturation 97% on room air . GENERAL: Patient is awake, alert, in no apparent distress. LUNGS: Decent air entry with dependent crackles. No prolonged expiratory phase or wheezing. HEART: Normal rate and regular. ABDOMEN: Soft, nontender, nondistended. Bowel sounds positive. MUSCULOSKELETAL: No cyanosis or clubbing. No pitting in the bilateral lower extremities. NEUROLOGIC: Grossly nonfocal. LABORATORY DATA: WBC 13.0, hemoglobin 8.8, and platelets 306,000. INR 1.1. Basic metabolic profil e and liver function studies are essentially unremarkable/stable. Creatinine 0.65. ASSESSMENT: 1. Chronic systolic heart failure. 2. Hip fracture of the left, status post open reduction and internal fixation, postoperative day #4 . 3. Gastrointestinal bleed, suspected. 4. Acute blood loss anemia, stable. PLAN: We will touch base with Cardiology to determine whether or not the Brilinta can be discontinu ed, indefinitely. If he maintains his hemoglobin for the next 1-2 days, I do think he would benefit from a low dose of anticoagulation for prophylaxis against DVT and pulmonary embolism. We will foc us our efforts on mobilizing the patient to see if we can improve on his strength. He does have a s ignificant delirium, but for the time being, he is fairly pleasant. Pulmonary will continue to foll ow up for the time being.
[2017-02-10] MEDS: HYDROcodone/Acetaminophen 10/325 mg Tablet PO PRN (13:43)
--- NOTE | 2017-02-10 14:01 | PRG ---
DATE OF SERVICE: 02/10/2017 SUBJECTIVE: Colton Costello is an 81-year-old male who presented to [facility] status post ground level fall. He has multiple cardiac risk factors including coronary artery disease and cardiomyopa thy. He has had multiple falls in the past. Initial fixation of his hip fracture was delayed secon aisha to requirement for cardiac clearance. Patient is currently postop day #4 status post hip fract ure repair. Postoperatively, the patient was doing well; however, he developed bright red blood per rectum with multiple bloody bowel movements. His hemoglobin and hematocrit dropped requiring trans fusion. His anti-platelets and anticoagulants were stopped. Overnight, he had no further bloody edna wel movements. He has remained hemodynamically stable. Hemoglobin this morning is 8.8. The patien t vocalized no complaints this a.m. OBJECTIVE: VITAL SIGNS: Temperature 98.2, pulse 88, respirations 18, O2 sat 96% on room air, and blood pressur e 146/59. GENERAL: Well-developed elderly appearing male in no acute distress, resting in bed. PULMONARY: Normal work of breathing. Symmetric rise. CARDIOVASCULAR: Regular rate and rhythm. GASTROINTESTINAL: Abdomen is soft, nontender, and nondistended. MUSCULOSKELETAL: Moves all extremities. NEUROLOGIC: No focal deficit noted. ASSESSMENT: 1. Status post ground level fall. 2. Acute traumatic pain secondary to above. 3. Hematochezia. 4. Acute blood loss anemia secondary to above. 5. Coronary artery disease, multiple cardiovascular comorbidities on antiplatelet therapy. 6. History of heart failure. PLAN: The patient has remained hemodynamically stable and is stable from a respiratory standpoint. I have discussed with Critical Care Medicine, we will transfer patient from ICU to tele. Obtain a hospital medicine consult for medical management. Patient has been cleared for discharge once medic ally stable from orthopedic surgical standpoint. We will follow GI recommendations. Continue to fo llow hemoglobin and hematocrit. Continue PT and OT. If patient's hemoglobin and hematocrit remains stable, consider initiation of aspirin versus other pharmacological DVT prophylaxis. The patient h as been discussed with trauma attending. All questions have been answered at the time of this dicta tion.
--- NOTE | 2017-02-10 15:53 | PRG ---
DATE OF SERVICE: 02/10/2017 SUBJECTIVE: Mr. Costello has had no bleeding. The nurses note he has not had any bleeding either. He is having pain in his legs when he gets up to walk. OBJECTIVE: VITAL SIGNS: Heart rate 67, blood pressure 142/56, temperature is 98. ABDOMEN: Nontender. LABORATORY STUDIES: White count 13, hemoglobin 8.8, platelet count 306. INR 1.1. Sodium 133, pota ssium 3.9, BUN and creatinine are 14 and 0.65. AST and ALT are 41 and 31, albumin is 2.6. ASSESSMENT: 1. 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 2. Hematochezia was felt to be related to Brilinta and his previous history of the arteriovenous ma lformations. He is receiving transfusion and Brilinta has been held. No signs of active bleeding n ow. PLAN: Observation. Agree he can go to the floor and begin to eat. We will continue to follow betsey randolph
--- NOTE | 2017-02-10 18:52 | CON ---
DATE OF CONSULTATION: 02/10/2017 HISTORY OF PRESENT ILLNESS: This is an 81-year-old gentleman who has been hospitalized after a left hip fracture who underwent a repair of this back in I believe 07/2016. He is also with a history o f ventricular fibrillation arrest. He has had some problems with nonsustained ventricular tachycard ia prior to this back in September. He was evaluated for decreased ejection fraction, this now seems to have improved as there was some discussion about the LifeVest in the past, but appears that he no lo nger needs that. His ejection fraction had improved up to 40-45% and the LifeVest was discontinued. He continues to have a pacemaker in place. He does have problems. He does have a history of bypa ss surgery in the past and also I believe angioplasty and stent placement also. Today he was seen f or evaluation. He is sleeping after he was given pain medications for his hip. He had been with ph ysical therapy and after that he had complained of pain and was given some pain medications. i s at the bedside. He does not offer any complaints. PHYSICAL EXAMINATION: VITAL SIGNS: Reveals a blood pressure to be 142/58, heart rate is 69 and it is regular appears to b e pacing. He is afebrile, respiratory rate 16, O2 saturations 96%. HEENT: Unremarkable. CHEST: Clear to auscultation. CARDIOVASCULAR: Exam reveals a regular rate and rhythm at this time. He has a systolic murmur note d. ABDOMEN: Soft. He has positive bowel sounds. EXTREMITIES: Show no clubbing, cyanosis or edema. NEUROLOGIC: The patient is fatigued at this time and appears to be somewhat sleepy after being give n pain medications. LABORATORY DATA: Shows hemoglobin 8.8, previously yesterday morning was 6.3, he then had transfusio ns up to 9.9. He is back down to 8.8 in the hemoglobin. White blood cell count 13,000. Chemistrie s today indicate a potassium of 3.9, blood sugar is 123. His AST is slightly elevated at 41. His c reatinine was 0.65. Sodium is low also at 133, but it is improved over yesterday when it was 127. His EKG rhythm strips shows that he has 100% pacing, appears to regular and at times, he has A sense , V paced. IMPRESSION: Elderly patient with multiple medical problems with, 1. Coronary artery disease. This remained stable at this time. 2. Status post hip fracture for which he continues to get therapy. 3. History of nonsustained ventricular tachycardia, he is with a decrease in ejection fraction whic h has improved. He no longer is a candidate for an AICD. 4. Status post biventricular pacemaker which is being stable at this time. 5. History of mitral valve replacement with bioprosthetic valve. 6. History of gastrointestinal bleeding. He has been on medications, the Brilinta has been discont inued. He did have a non-ST segment elevation in September of this year at which time he had a ventricul ar fibrillation arrest and then a drug-eluting stent was placed. He obviously is at risk for having thrombosis with a drug-eluting stent after stopping the medications with the Brilinta, but this obv iously is necessary at this time due to the severe bleeding and gastrointestinal blood loss. 7. Paroxysmal atrial fibrillation. He is on amiodarone. He appears to be in sinus at this time. 8. History of hypertension. This is reasonably stable at this time. 9. History of slight elevation of liver function studies, which appears to be improving. I have re viewed his medications and would agree with the present medications at this time. He has had a hist ory of gastric ulcers in the past. 10. Gastrointestinal bleeding with gastric ulcers and colonic AV malformations making this a somewh at difficult situation in this gentleman with a drug-eluting stent and GI blood loss with inability to anticoagulate this patient and give this patient antiplatelet medications. We will need to follo w him very carefully for possible further episodes of chest pain, EKG changes or indication that the re may be any kind of stent thrombosis since the stent has only been about 4 months ago.
[2017-02-10] MEDS: Tamsulosin HCl 0.4 MG CAP PO SCH (21:01)
[2017-02-10] MEDS: Atorvastatin Calcium 20 MG TAB PO SCH (21:01)
[2017-02-11] MEDS: Levothyroxine Sodium 25 MCG TAB PO SCH (05:35)
[2017-02-11 05:58] LABS: #Eosinphils 0.1 thou/uL (0.0-0.7); #Lymphocytes 1.1 thou/uL (1.20-3.40); #Monocytes 1.1 thou/uL (0.11-0.59); %Basophils 0.2 % (0.0-1.0); %Eosinophils 0.6 % (0.0-10.0); %Lymphocytes 13.1 % (21.0-51.0); %Monocytes 12.9 % (0.0-10.0); Hematocrit 25.6 % (42.0-52.0); Mean Platelet Volume 7.5 fL (7.4-10.4); White Blood Cell (WBC) Count 8.2 thou/uL (4.8-10.8)
[2017-02-11 06:24] LABS: ALT (SGPT) 25 U/L (8-55); AST (SGOT) 33 U/L (5-34); Alkaline Phosphatase 106 U/L (40-150); Anion Gap 12 mmol/L (10-20); BUN (Urea Nitrogen) 13 mg/dL (8.4-25.7); Bilirubin, Total 0.7 mg/dL (0.2-1.2); Calc. Creatinine Clearance 83 mL/min (70-130); Calcium 7.9 mg/dL (7.8-10.44); Carbon Dioxide 23 mmol/L (23-31); Chloride 102 mmol/L (98-107); Estimated GFR-MDRD Greater than 90; Globulin 2.4 g/dL (2.4-3.5); Phosphorus 2.8 mg/dL (2.3-4.7); Protein, Total 4.8 g/dL (5.8-8.1)
[2017-02-11] MEDS: Carvedilol 3.125 MG TAB PO SCH ×2 (10:38→17:45)
[2017-02-11] MEDS: Amiodarone 200 MG TAB PO SCH (10:38)
[2017-02-11] MEDS: Senokot S 8.6-50 MG TAB PO SCH ×2 (10:38→21:01)
[2017-02-11] MEDS: Furosemide 40 MG/4 ML VIAL SLOW IVP SCH (10:38)
[2017-02-11] MEDS: Potassium Chloride 20 MEQ TAB PO SCH (10:39)
[2017-02-11] MEDS: Multivitamin W/ Minerals 1 TAB PO SCH (10:39)
[2017-02-11] MEDS: Ferrous Gluconate 324 MG TAB PO SCH ×2 (10:39→21:03)
[2017-02-11] MEDS: Hydrocortisone Sod Succ/PF 100 mg/2 ml Vial IVP SCH (10:40)
[2017-02-11] MEDS ORDERED: traMADol HCl 50 MG TAB PO PRN ×2 (11:29)
--- NOTE | 2017-02-11 13:35 | PDOC.PN ---
- Subjective Encounter Start Date: 02/11/17 Encounter Start Time: 10:50 pt transferred tot he floor overnight. no further rectal bleeding, no CP or sOB , no N/V/d/C,no cough or sputum, no hemoptysis 10 point ROS performed and neg x as above. Pt thinks he had the GI bleed from being on too much blood thinners - Objective Resuscitation Status: FULL MAR Reviewed: Yes Vital Signs & Weight: Vital Signs (12 hours) Temp Pulse Resp BP Pulse Ox 02/11/17 09:00 98.5 F 73 18 144/63 H 93 L 02/11/17 04:00 98.6 F 65 18 149/67 H 92 L Weight Admit Weight 123 lb 9.6 oz Weight 147 lb 1.6 oz Most Recent Monitor Data Heart Rate from ECG 66 NIBP 132/52 NIBP BP-Mean 99 Respiration from ECG 10 SpO2 98 I&O: 02/10/17 02/11/17 02/12/17 06:59 06:59 06:59 Intake Total 1965 430 Output Total 109 650 Balance 1856 -220 Result Diagrams: 02/11/17 05:16 02/11/17 05:16 Radiology Reviewed by me: Yes EKG Reviewed by me: Yes Phys Exam - Physical Examination Constitutional: NAD HEENT: PERRLA, moist MMs, sclera anicteric, oral pharynx no lesions Neck: no nodes, no JVD, supple, full ROM Respiratory: no wheezing, no rales, no rhonchi, clear to auscultation bilateral Cardiovascular: RRR, no significant murmur, no rub Gastrointestinal: soft, non-tender, no distention, positive bowel sounds Musculoskeletal: pulses present, edema present Neurological: non-focal, normal sensation, moves all 4 limbs Lymphatic: no nodes Psychiatric: normal affect, A&O x 3 Skin: no rash, normal turgor, cap refill <2 seconds Dx/Plan (1) Lower GI bleed Code(s): K92.2 - GASTROINTESTINAL HEMORRHAGE, UNSPECIFIED Status: Acute Comment: likely Lower, history of PUD, colonic AVMs. high risk for re-bleed (2) Acute on chronic systolic CHF (congestive heart failure) Code(s): I50.23 - ACUTE ON CHRONIC SYSTOLIC (CONGESTIVE) HEART FAILURE Status : Acute Comment: improved at present. EF improved, no AICD - not a candidate. BiV pacer functioning (3) Anemia due to blood loss, acute Code(s): D62 - ACUTE POSTHEMORRHAGIC ANEMIA Status: Acute Comment: hgb 8.6, off billinta. Dr Diaz has seen. Will defer to Dr Whitaker whether to resart any antiplatelt Rx. H/H relatively stble overnight, no further evidence of bleeding, recheck in the AM (4) Generalized weakness Code(s): R53.1 - WEAKNESS Status: Acute (5) CAD (coronary artery disease) Code(s): I25.10 - ATHSCL HEART DISEASE OF [place] CORONARY ARTERY W/O ANG PCTRS Status: Chronic Qualifiers: Coronary Disease-Associated Artery/Lesion type: [place] artery [place] vs. transplanted heart: [place] heart Associated angina: without angina Qualified Code(s): I25.10 - Atherosclerotic heart disease of [place] coronary artery without angina pectoris (6) Cardiomyopathy Code(s): I42.9 - CARDIOMYOPATHY, UNSPECIFIED Status: Chronic (7) Hypertension Code(s): I10 - ESSENTIAL (PRIMARY) HYPERTENSION Status: Chronic (8) Hypothyroidism Code(s): E03.9 - HYPOTHYROIDISM, UNSPECIFIED Status: Chronic (9) Fall on same level as cause of accidental injury Code(s): W18.30XA - FALL ON SAME LEVEL, UNSPECIFIED, INITIAL ENCOUNTER Status : Resolved (10) Hip fracture requiring operative repair Code(s): S72.009A - FRACTURE OF UNSP PART OF NECK OF UNSP FEMUR, INIT Status: Resolved Qualifiers: Encounter type: initial encounter Fracture type: closed Laterality: left Qualified Code(s): S72.002A - Fracture of unspecified part of neck of left femur, initial encounter for closed fracture Comment: s/p ORIF - Plan * .
--- NOTE | 2017-02-11 14:32 | PDOC.CTH ---
<Estephania Farooq - Last Filed: 02/11/17 14:33> Cardiology Progress Note - Subjective The pt was seen and examined. No overnight events. No cardiac complaints. He walked to Bathroom and back to bedroom with PT today without any cardiac complaints - Objective Vital Signs Temp Pulse Resp BP Pulse Ox 02/11/17 09:00 98.5 F 73 18 144/63 H 93 L 02/11/17 04:00 98.6 F 65 18 149/67 H 92 L Admit Weight 123 lb 9.6 oz Weight 147 lb 1.6 oz 02/10/17 02/11/17 02/12/17 06:59 06:59 06:59 Intake Total 1965 430 Output Total 109 650 Balance 1856 -220 - Physical Examination General/Neuro: alert & oriented x3 Neck: no JVD present Lungs: CTA Heart: RRR Abdomen: soft Extremities: other: (No edemas) - Telemetry Telemetry Rhythm: SR and V paced - Labs Result Diagrams: 02/11/17 05:16 02/11/17 05:16 Troponin/CKMB Troponin I 0.046 ng/mL (< 0.028) H 02/07/17 03:35 - Assessment/Plan 1. CAD w/ Hx of drug-eluting stent in 07/2016 - stable; on BBlocker and Statin; No anti-platelet med due to Hx of severe GI bleed 2. S/p Lt Hip fx repair - Ex with PTs 3. Hx of B fib arrest in 07/2016 and s/p stent placement - EF on 02/06 was 40-45 %; cont. monitor on tele 4. Hx of MVR with Bioprosthatic Valve - Stable; cont. monitor 5. Paroxymal Afib - Remain SR with V paced; on Amiodarone 200mg daily; cont. monitor on tele 6. Hx of GI bleed - No anti-platelet med due to hx of GI bleed; High risk of thromboses at the stent site; cont. monitor 7. HTN - stable with current medication 8. Hyperlipidemia - on statin med 9. Anemia - on iron supplement 10. Hypothyroidism - on Thyroid medication MAR Reviewed Review of Systems - Review of Systems Constitutional: reports: no symptoms reported EENTM: reports: no symptoms reported Respiratory: reports: no symptoms reported Cardiac (ROS): reports: no symptoms reported ABD/GI: reports: no symptoms reported : reports: no symptoms reported Musculoskeletal: reports: no symptoms reported <Yakov Diaz - Last Filed: 02/11/17 23:04> Cardiology Progress Note - Objective Vital Signs Temp Pulse Resp BP Pulse Ox 02/11/17 16:00 99.2 F 77 18 126/58 L 18 L Admit Weight 123 lb 9.6 oz Weight 147 lb 1.6 oz 02/10/17 02/11/17 02/12/17 06:59 06:59 06:59 Intake Total 1965 430 400 Output Total 109 650 Balance 1856 -220 400 - Labs Result Diagrams: 02/11/17 05:16 02/11/17 05:16 Troponin/CKMB Troponin I 0.046 ng/mL (< 0.028) H 02/07/17 03:35 - Assessment/Plan Pt. seen and eval. by me. I agree with the A/P by the [facility]. His only complaint this PM was leg pain.
--- NOTE | 2017-02-11 16:23 | PRG ---
DATE OF SERVICE: 02/11/2017 SUBJECTIVE: Mr. Costello is an 81-year-old male who is status post ground level fall. He has multip le cardiac risk factors to include coronary artery disease, cardiomyopathy, recent ventricular fibri llation arrest and stent placement with multiple falls in the past. Initial fixation of his hip was delayed secondary to cardiac clearance. Patient is currently postop day #5 status post hip fractur e repair. Postoperatively, the patient developed bright red blood per rectum with multiple bloody b owel movements. His hemoglobin and hematocrit dropped requiring transfusion. His antiplatelets and anticoagulants were stopped, this has since resolved. He is currently hemodynamically stable. His hemoglobin this morning is stable from yesterday. He localizes no complaints this a.m. He is some what confused regarding the events of his hospitalization. OBJECTIVE: VITAL SIGNS: Temperature 98.5, pulse 73, respiration rate 18, O2 sat 93% on room air, blood pressur e 144/63. GENERAL: Well-developed, well-nourished, elderly appearing male in no acute distress, resting in be d. PULMONARY: Normal work of breathing, symmetric rise. CARDIOVASCULAR: Regular rate and rhythm. GASTROINTESTINAL: Abdomen is soft, nontender, nondistended. MUSCULOSKELETAL: Moves all extremities x4. NEUROLOGIC: No focal deficit noted. ASSESSMENT: 1. Status post ground-level fall. 2. Acute traumatic pain secondary to above. 3. Postop day #5 status post hip fracture repair. 4. Hematochezia. 5. Acute blood loss anemia secondary to above, stable. 6. Coronary artery disease, multiple cardiovascular comorbidities on antiplatelet therapy. 7. History of heart failure, currently being diuresed. PLAN: The patient has been seen and evaluated by Cardiology and Hospital Medicine as well as GI. W e will follow up consulted and input regarding the patient's ability for transfer to inpatient rehab ilitation. We will continue to trend hemoglobin and hematocrit. Once final determination from cons ultants has been made, we will proceed to eventual disposition to inpatient rehabilitation. Continu e PT and OT. Encourage pulmonary toileting. The patient has been discussed with trauma attending. All questions were answered at the time of this dictation.
--- NOTE | 2017-02-11 17:30 | PRG ---
DATE OF SERVICE: 02/11/2017 SUBJECTIVE: Mr. Costello has had no bleeding overnight. PHYSICAL EXAMINATION: VITAL SIGNS: Temperature is 98, pulse 73, blood pressure is 144/63, O2 sat 93%. ABDOMEN: Soft, nontender. He is eating a cheeseburger and having a milkshake. LABORATORY STUDIES: Hemoglobin is 8.6, it was 8.8 yesterday, white count 8.2, platelets 237. BUN a nd creatinine are 13 and 0.65, sodium 133. Liver function tests normal. ASSESSMENT: 1. Gastrointestinal bleeding, resolved. 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 Thes e are on hold now. He has no signs of bleeding. 2. Recent fall and hip fracture. RECOMMENDATIONS: We would continue to hold anticoagulation at this time. Dr. Rios back tomorr ow. Discuss plans whether or not can be restarted or not. The patient notes that he has been told that maybe he should be on a half dose of medications by Dr. Rios in the past, but again, Dr. Linsey chew will be back tomorrow to resume his care from a GI standpoint. He has had a long history o f recurrent bleeding from AVMs and there are no plans to re-scope him at this point of time unless h e has bleeding that would not stop by holding his anticoagulants.
[2017-02-11] MEDS: Acetaminophen 500 MG TAB PO SCH ×2 (17:45→17:47)
--- NOTE | 2017-02-11 18:52 | PRG ---
DATE OF SERVICE: 02/11/2017 SERVICE: Pulmonary Medicine. INTERVAL HISTORY: The patient is doing abstaining from cardiovascular and respiratory standpoint. He is breathing comfortably. He denies any current fevers, chills, nausea, vomiting or chest discomfort. He has been up walking with physical therapy on 2 separate occasions today and honestly his biggest complaint is some knee discomfort, which is chronic. PHYSICAL EXAMINATION: VITAL SIGNS: Afebrile, pulse 68, blood pressure 128/72, respirations 16, saturation 96% on room air. GENERAL: Patient is awake, alert, no apparent distress. LUNGS: Excellent air entry. There is no prolonged expiratory phase. No wheezing, rhonchi, or crackles are appreciated. HEART: Normal rate, regular. ABDOMEN: Soft, nontender, nondistended. Bowel sounds positive. MUSCULOSKELETAL: No cyanosis or clubbing. No pitting in the bilateral lower extremities. NEUROLOGIC: Grossly nonfocal. LABORATORY DATA: WBC 8.2, hemoglobin 8.6 and stable. Platelets 279,000. INR 1.1. Basic metabolic profile and liver function studies were essentially unremarkable. The sodium continues to improve slowly. Anion gap is gently up trending and the bicarbonate is stable. ASSESSMENT: 1. Chronic systolic heart failure. 2. Hip fracture on the left, status post open reduction and internal fixation, postop day #5. 3. Gastrointestinal bleed. 4. Acute blood loss anemia, stable/improving. PLAN: At this point, the patient has no further requirements for inpatient Pulmonary or Critical Care opinion. As such, I will sign off. It does look like the patient will require antiplatelet therapy moving forward. He had a drug-eluting stent placed less than 4 months ago. Moving forward. He will likely need to some form of aggressive antiplatelet therapy for the next 5 months. As such, he will probably be a poor candidate for low dose anticoagulation for prophylaxis against DVT. We will continue our mobilization efforts moving forward. ARIELA
[2017-02-11] MEDS ORDERED: Melatonin 3 MG TAB PO PRN (20:44)
[2017-02-11] MEDS ORDERED: HYDROcodone/Acetaminophen 10/325 mg Tablet PO SCH (20:45)
[2017-02-11] MEDS: Tamsulosin HCl 0.4 MG CAP PO SCH (21:02)
[2017-02-11] MEDS: Atorvastatin Calcium 20 MG TAB PO SCH (21:04)
[2017-02-12] MEDS: Acetaminophen 325 MG TAB PO SCH ×4 (00:08→18:34)
[2017-02-12 06:13] LABS: ALT (SGPT) 24 U/L (8-55); AST (SGOT) 30 U/L (5-34); Alkaline Phosphatase 102 U/L (40-150); Anion Gap 10 mmol/L (10-20); BUN (Urea Nitrogen) 13 mg/dL (8.4-25.7); Bilirubin, Total 0.7 mg/dL (0.2-1.2); Calc. Creatinine Clearance 81 mL/min (70-130); Calcium 7.5 mg/dL (7.8-10.44); Carbon Dioxide 23 mmol/L (23-31); Chloride 99 mmol/L (98-107); Estimated GFR-MDRD Greater than 90; Globulin 2.3 g/dL (2.4-3.5); Magnesium 1.8 mg/dL (1.6-2.6); Phosphorus 2.5 mg/dL (2.3-4.7); Protein, Total 4.6 g/dL (5.8-8.1)
[2017-02-12 06:14] LABS: Band 2 % (5-11); Hematocrit 24.5 % (42.0-52.0); Mean Platelet Volume 7.2 fL (7.4-10.4); Metamyelocyte 1 % (0-0); Neutrophil 64 % (42-75); Red Blood Cell (RBC) Count 2.66 mill/uL (4.70-6.10); White Blood Cell (WBC) Count 7.3 thou/uL (4.8-10.8)
[2017-02-12] MEDS: Levothyroxine Sodium 25 MCG TAB PO SCH (07:02)
[2017-02-12] MEDS: Carvedilol 3.125 MG TAB PO SCH ×2 (08:42→16:39)
[2017-02-12] MEDS: Potassium Chloride 20 MEQ TAB PO SCH (08:42)
[2017-02-12] MEDS: Ferrous Gluconate 324 MG TAB PO SCH ×2 (08:42→21:22)
[2017-02-12] MEDS: Amiodarone 200 MG TAB PO SCH (08:42)
[2017-02-12] MEDS: Furosemide 40 MG/4 ML VIAL SLOW IVP SCH (08:43)
[2017-02-12] MEDS: Multivitamin W/ Minerals 1 TAB PO SCH (08:44)
[2017-02-12] MEDS: Senokot S 8.6-50 MG TAB PO SCH ×2 (08:45→21:23)
[2017-02-12] MEDS ORDERED: Hydrocortisone Sod Succ/PF 100 mg/2 ml Vial IVP SCH ×2 (09:00)
[2017-02-12] MEDS: Furosemide 40 MG TAB PO SCH ×2 (09:23→14:17)
[2017-02-12] MEDS ORDERED: Temazepam 15 MG CAP PO PRN (09:26)
--- NOTE | 2017-02-12 11:56 | PDOC.PN ---
- Subjective Encounter Start Date: 02/12/17 Encounter Start Time: 10:30 Pt seen and examined, chat reviewed. Pt feels like his abd is gurgling today. feels like he is going to have a BM soon. No BM in 2 days and therefore no bleeding that he knows of. NO F/c, no N/V, no CP or SOB, no acute events Hgb tricking down. Hip sore, but overall improved 10 point ROS performed and neg for all systems except as per HPI - Objective MAR Reviewed: Yes Vital Signs & Weight: Vital Signs (12 hours) Temp Pulse Resp BP Pulse Ox 02/12/17 08:38 97.9 F 60 16 159/65 H 96 02/12/17 04:00 97.9 F 69 18 139/64 94 L Weight Admit Weight 123 lb 9.6 oz Weight 148 lb 1.6 oz Most Recent Monitor Data Heart Rate from ECG 66 NIBP 132/52 NIBP BP-Mean 99 Respiration from ECG 10 SpO2 98 I&O: 02/11/17 02/12/17 02/13/17 06:59 06:59 06:59 Intake Total 430 760 Output Total 650 400 Balance -220 360 Result Diagrams: 02/12/17 05:13 02/12/17 05:13 Radiology Reviewed by me: Yes EKG Reviewed by me: Yes Phys Exam - Physical Examination Constitutional: NAD HEENT: PERRLA, moist MMs, sclera anicteric, oral pharynx no lesions Neck: no nodes, no JVD, supple, full ROM Respiratory: no wheezing, no rales, no rhonchi, clear to auscultation bilateral Cardiovascular: RRR, no significant murmur, no rub Gastrointestinal: soft, non-tender, no distention, positive bowel sounds Musculoskeletal: no edema, pulses present Neurological: non-focal, normal sensation, moves all 4 limbs Lymphatic: no nodes Psychiatric: normal affect, A&O x 3 Dx/Plan (1) Lower GI bleed Code(s): K92.2 - GASTROINTESTINAL HEMORRHAGE, UNSPECIFIED Status: Acute Comment: likely Lower, history of PUD, colonic AVMs. high risk for re-bleed. Hgb down to 8.0 today. ten conley need another unit of blood. follow up on GI recommendations (2) Acute on chronic systolic CHF (congestive heart failure) Code(s): I50.23 - ACUTE ON CHRONIC SYSTOLIC (CONGESTIVE) HEART FAILURE Status : Acute Comment: improved at present. EF improved, no AICD - not a candidate. BiV pacer functioning (3) Anemia due to blood loss, acute Code(s): D62 - ACUTE POSTHEMORRHAGIC ANEMIA Status: Acute Comment: hgb 8.6, off billinta. Dr Diaz has seen. Will defer to Dr Whitaker whether to resart any antiplatelt Rx. H/H trending down, no further evidence of bleeding, hgb 8.0. follow up on GI recs. given current problems, would favor him getting another unit (4) Generalized weakness Code(s): R53.1 - WEAKNESS Status: Acute (5) CAD (coronary artery disease) Code(s): I25.10 - ATHSCL HEART DISEASE OF [place] CORONARY ARTERY W/O ANG PCTRS Status: Chronic Qualifiers: Coronary Disease-Associated Artery/Lesion type: [place] artery [place] vs. transplanted heart: [place] heart Associated angina: without angina Qualified Code(s): I25.10 - Atherosclerotic heart disease of [place] coronary artery without angina pectoris Comment: no CP, no symptoms at present. keep HGb around 9 or better (6) Cardiomyopathy Code(s): I42.9 - CARDIOMYOPATHY, UNSPECIFIED Status: Chronic Qualifiers: Cardiomyopathy type: unspecified Qualified Code(s): I42.9 - Cardiomyopathy , unspecified (7) Hypertension Code(s): I10 - ESSENTIAL (PRIMARY) HYPERTENSION Status: Chronic Qualifiers: Hypertension type: essential hypertension Qualified Code(s): I10 - Essential (primary) hypertension (8) Hypothyroidism Code(s): E03.9 - HYPOTHYROIDISM, UNSPECIFIED Status: Chronic Qualifiers: Hypothyroidism type: acquired Qualified Code(s): E03.9 - Hypothyroidism, unspecified Comment: contiue replacement (9) Fall on same level as cause of accidental injury Code(s): W18.30XA - FALL ON SAME LEVEL, UNSPECIFIED, INITIAL ENCOUNTER Status : Resolved (10) Hip fracture requiring operative repair Code(s): S72.009A - FRACTURE OF UNSP PART OF NECK OF UNSP FEMUR, INIT Status: Resolved Qualifiers: Encounter type: initial encounter Fracture type: closed Laterality: left Qualified Code(s): S72.002A - Fracture of unspecified part of neck of left femur, initial encounter for closed fracture Comment: s/p ORIF - Plan cont current plan of care, PT/OT, social services aide, incentive spirometry * .
[2017-02-12] MEDS ORDERED: Potassium Chloride 20 MEQ TAB PO SCH (12:30)
--- NOTE | 2017-02-12 13:27 | PRG ---
DATE OF SERVICE: 02/12/2017 SUBJECTIVE: Mr. Costello is an 81-year-old male status post ground-level fall. He has multiple card iac risk factors that required medical clearance prior to operative fixation of his injury. The pat ient is currently postop day #6 status post hip fracture repair. Postoperatively, the patient devel oped bright red blood per rectum with multiple bloody bowel movements, causing his H\T\H dropped. H e required transfusion. Antiplatelets and anticoagulants were stopped. The patient is currently be ing followed by Hospital Medicine and Cardiology. His H\T\H is stable. He is hemodynamically stabl e. The only complaint he has this a.m. is difficulty sleeping. OBJECTIVE: VITAL SIGNS: Temperature 97.9, pulse 60, respirations 16, O2 sat 96% on room air, blood pressure 15 9/65. GENERAL: Well-developed, well-nourished elderly male resting in bed, in no acute distress. PULMONARY: Normal work of breathing. Symmetric rise. CARDIOVASCULAR: Regular rate and rhythm. GASTROINTESTINAL: Soft, nontender, nondistended, bowel sounds positive. MUSCULOSKELETAL: Moves all extremities x4. NEUROLOGIC: No focal deficit noted. LABORATORY DATA: WBC 7.3, hemoglobin 8.1, hematocrit 24.5, platelet count 263. Sodium 129, potassi um 3.4, chloride 99, carbon dioxide 23, BUN 13, creatinine 0.66, glucose 92. ASSESSMENT: 1. Status post ground-level fall. 2. Acute traumatic pain secondary to above. 3. Postop day #6 status post hip fracture repair. 4. Hematochezia. 5. Acute blood loss anemia secondary to above, stable. 6. Coronary artery disease with recent stent placement. Patient's antiplatelet therapy has been st opped, high risk for instent thrombosis. 7. History of heart failure, currently on diuretics. 8. Hyponatremia. 9. Hypokalemia. PLAN: The patient has been seen and evaluated by Cardiology and Hospital Medicine. Await their inp ut regarding appropriateness for discharge. I have discussed with inpatient rehabilitation, who is currently evaluating the patient for possible acceptance. Continue PT, OT. Pulmonary toilet and barron pportive care. We will order a regular diet with fluid restriction given the patient's hyponatremia . Replete electrolytes. A.m. labs. Patient was seen and evaluated by trauma attending. All quest ions answered at the time of this dictation.
--- NOTE | 2017-02-12 13:30 | PRG ---
DATE OF SERVICE: 02/12/2017 SUBJECTIVE: Mr. Costello has no complaints. He is tolerating diet, work, and physical therapy. He would like to be discharged to rehabilitation. PHYSICAL EXAMINATION: VITAL SIGNS: He is afebrile. Vital signs are stable. ABDOMEN: Soft and nontender. CHEST: Clear. HEART: Regular rate. ASSESSMENT: History of cardiac event and congestive heart failure after hip femoral neck fracture r epair. PLAN: To rehabilitation soon.
[2017-02-12] MEDS: Atorvastatin Calcium 20 MG TAB PO SCH (21:22)
[2017-02-12] MEDS: Tamsulosin HCl 0.4 MG CAP PO SCH (21:22)
[2017-02-13] MEDS: Acetaminophen 325 MG TAB PO SCH ×3 (00:29→12:39)
[2017-02-13] MEDS: Levothyroxine Sodium 25 MCG TAB PO SCH (05:32)
[2017-02-13 05:41] VITALS: BMI 21.0
--- NOTE | 2017-02-13 05:42 | PRG ---
DATE OF SERVICE: 02/12/2017 SUBJECTIVE: This is an 81-year-old male hospitalized with femoral neck fracture, status p ost surgery. The patient was in ICU until this past Sunday. The patient was on Brilinta and aspiri n. He was found to have some hematochezia on and Sunday. After stopping the Brilinta and aspirin, he has had no recurrence of bleeding. Blood count is stable. He is tolerating a regular d iet. He has no abdominal pain, no nausea, no vomiting. LABORATORY DATA: From today, CBC shows WBC 7300, hemoglobin 8.1 and hematocrit 24.5. Chemistry phillips el: Sodium is 133, potassium is 4, bicarbonate is 23 and BUN is 13. OBJECTIVE: GENERAL: Appears comfortable, afebrile, temperature 98.1 degrees Fahrenheit. Pulse is 67, blood pr essure 160/69. CARDIOVASCULAR SYSTEM/LUNGS: Within normal limits. ABDOMEN: Soft to palpate. No organomegaly. No tenderness. No masses. CLINICAL IMPRESSION: Recurrent GI bleeding, mostly from the Brilinta. He has stopped Brilinta over the last few days and he has had no recurrence of bleeding. RECOMMENDATIONS: Follow up H\T\H and transfuse p.r.n.
[2017-02-13 05:49] LABS: #Eosinphils 0.2 thou/uL (0.0-0.7); #Monocytes 0.9 thou/uL (0.11-0.59); #Neutrophils 5.9 thou/uL (1.40-6.50); %Basophils 0.1 % (0.0-1.0); %Eosinophils 2.1 % (0.0-10.0); %Lymphocytes 12.7 % (21.0-51.0); %Monocytes 11.5 % (0.0-10.0); Hematocrit 26.3 % (42.0-52.0); Mean Platelet Volume 7.4 fL (7.4-10.4); Red Blood Cell (RBC) Count 2.84 mill/uL (4.70-6.10)
[2017-02-13 06:10] LABS: ALT (SGPT) 23 U/L (8-55); AST (SGOT) 31 U/L (5-34); Alkaline Phosphatase 104 U/L (40-150); Anion Gap 10 mmol/L (10-20); BUN (Urea Nitrogen) 11 mg/dL (8.4-25.7); Bilirubin, Total 0.7 mg/dL (0.2-1.2); Calc. Creatinine Clearance 80 mL/min (70-130); Calcium 7.5 mg/dL (7.8-10.44); Carbon Dioxide 27 mmol/L (23-31); Chloride 99 mmol/L (98-107); Estimated GFR-MDRD Greater than 90; Globulin 2.5 g/dL (2.4-3.5); Magnesium 1.4 mg/dL (1.6-2.6); Phosphorus 2.4 mg/dL (2.3-4.7); Protein, Total 4.8 g/dL (5.8-8.1)
[2017-02-13] MEDS: Carvedilol 3.125 MG TAB PO SCH (08:14)
[2017-02-13] MEDS: Ferrous Gluconate 324 MG TAB PO SCH (08:15)
[2017-02-13] MEDS: Amiodarone 200 MG TAB PO SCH (08:15)
[2017-02-13] MEDS: Multivitamin W/ Minerals 1 TAB PO SCH (08:15)
[2017-02-13] MEDS: Furosemide 40 MG TAB PO SCH ×2 (08:15→14:18)
[2017-02-13] MEDS: Potassium Chloride 20 MEQ TAB PO SCH (08:15)
[2017-02-13] MEDS: Senokot S 8.6-50 MG TAB PO SCH (08:16)
[2017-02-13] MEDS ORDERED: Potassium Chloride 20 MEQ TAB PO SCH (08:45)
[2017-02-13] MEDS ORDERED: Magnesium Oxide 400 MG TAB PO SCH (09:00)
[2017-02-13 13:00] VITALS: TEMP 98.8
[2017-02-13 13:55] VITALS: BP 161/72
--- NOTE | 2017-02-13 16:30 | DIS ---
DATE OF SERVICE: 02/02/2017 DATE OF DISCHARGE: 02/13/2017 ADMISSION DIAGNOSES: 1. Status post fall from wheelchair, ground level fall. 2. Left displaced femoral neck fracture. 3. Acute pain secondary to trauma. 4. Transaminitis. 5. Hyponatremia. 6. Significant coronary artery disease. CONSULTATIONS: Orthopedics, Dr. Olvera; Cardiology, Dr. Ruby and Dr. Whitaker. PROCEDURES: Open reduction and internal fixation of basicervical fracture of the left proximal femu r utilizing a trochanteric fixation nail. SUMMARY: The patient is an 81-year-old man who is well known to our service due to previo falls. Due to the patient's significant cardiac history, it was felt that he would be best manag ed nonoperatively. Unfortunately, this time the patient's fall resulted in a displaced fracture, ne cessitating surgical intervention. The patient would require extensive cardiac evaluation and Dr. Michael burt deferred to Dr. Whitaker to make the final determination. Once Dr. Whitaker evaluated the p atient, he gave his recommendation, the patient was taken to the operating room and underwent his ab ove procedure. The patient would spend a few days on the Critical Care Unit for close monitoring an d then would be subsequently moved to the telemetry unit for the remainder of his stay. The patient had no issues and was working with physical and occupational therapy. The patient at the time of d ischarge was starting to ambulate with physical therapy, had worked with Occupational Therapy. His bowels were functioning and his pain was controlled and he is tolerating a diet. The patient will f ollow up with Dr. Olvera in 2 weeks, sooner as needed. The patient will continue his care at the [facility]. He may follow up with Dr. Levin as needed. The patient will also follo w up with Dr. Whitaker as directed by his service.
--- NOTE | 2017-02-13 22:38 | DIS ---
DATE OF ADMISSION: 02/02/2017 DATE OF DISCHARGE: 02/13/2017 DISCHARGE DIAGNOSES: 1. Status post lower gastrointestinal bleed secondary to Brilinta and aspirin, status post 4 units of packed red blood cells. 2. Acute on chronic normocytic anemia secondarily to acute blood loss, status post 4 units of packe d red blood cells. 3. Severe coronary artery disease, status post cardiac stent placement. 4. Status post mechanical fall with displaced left hip fracture. 5. Status post open reduction and internal fixation of left proximal femur fracture on 02/06/2017. 6. Ischemic cardiomyopathy. 7. Chronic systolic congestive heart failure, compensated. 8. Generalized weakness. 9. History of multiple falls. 10. Hypertension, stable. 11. Hypothyroidism, stable. PRIMARY SERVICE ATTENDING: Dr. Levin with Trauma Service. Dr. Olvera with Orthopedic Surgery Serv ice. Dr. Cochran with Pulmonology Service. Dr. Ruby with Cardiology Service. PERTINENT LABORATORY AND X-RAY FINDINGS: Sodium ranged between 127-133. Serum cortisol level 12.2 on 02/06/2017. CBC showed a hemoglobin ranging between 6.3-10.6. Stool Hemoccult dated 02/08/2017, positive x1. A 2D transthoracic echocardiogram dated 02/06/2017 showed ejection fraction of 40% to 45%. Technically limited exam. Pacer wire visualized in the right ventricle. Portable chest x-ra y dated 02/03/2017 showed no acute cardiopulmonary process. Vasculature in the upper limits of norm al. HOSPITAL COURSE: The patient was initially admitted under the Trauma Service, status post mechanica l fall with displaced left femur fracture. The patient underwent a Cardiology evaluation due to sev ere coronary artery disease and concern for complications operatively and perioperatively. The melvin ent was cleared for surgical intervention at which point the patient underwent open reduction and in ternal fixation of left femur fracture, 02/06/2017. Postoperatively, the patient developed hematoch ezia, taking aspirin and Brilinta. The patient was noted with a hemoglobin of 6.3 and transfused a total of 4 units of packed red blood cells with serial H\T\H monitoring. The patient's hemoglobin s tabilized after transfusion of blood products with current value of 8.6. The patient was discontinu ed on Brilinta and continued on aspirin 81. The patient continued to receive physical therapy per p rotocol, status post open reduction and internal fixation of the hip fracture. The patient remained clinically stable and deemed an appropriate candidate for return to inpatient rehabilitation on dis charge. Overall, patient clinically stable and ready for discharge on 02/13/2017. DISCHARGE MEDICATIONS: 1. Acetaminophen 650 mg p.o. q.4-6 hours p.r.n. 2. Amiodarone 200 mg 1 tab p.o. b.i.d. 3. Ascorbic acid 500 mg p.o. daily. 4. Enteric coated aspirin 325 mg p.o. daily. 5. Lipitor 20 mg one tablet p.o. daily. 6. Coreg 3.125 mg p.o. b.i.d. 7. Ferrous sulfate 325 mg p.o. daily. 8. Lasix 40 mg p.o. b.i.d. 9. Levothyroxine 25 mcg p.o. daily. 10. Lisinopril 2.5 mg p.o. daily. 11. Multivitamin 1 tab p.o. daily. 12. Nitroglycerin 0.4 mg sublingually every 5 minutes p.r.n. chest pain. 13. Protonix 40 mg 1 tab p.o. daily. 14. MiraLax 17 grams p.o. daily. 15. K-Dur 20 mEq one tab p.o. daily. 16. Brilinta 90 mg p.o. b.i.d. on hold. 17. Tramadol 50 mg 1-2 tabs p.o. q.6 hours p.r.n. pain. FOLLOWUP: The patient will follow up with his primary care provider, Dr. Edward Amaya after discha rgmejia from [facility]. The patient will follow up with Dr. Vincenzo [facility]vera [facility] 4-[address] Romi Diaz with [facility] Service 2-[address] Rios with GI Service 2-3 weeks after discharge. CONDITION ON DISCHARGE: Stable. ACTIVITY: Ad humberto. Rolling walker with standby/contact guard assist. DIET: Heart healthy. CODE STATUS: FULL. DISPOSITION: [facility] on 02/13/2017.
[2017-02-14] MEDS ORDERED: Aspirin 81 mg Enteric Coated Tablet PO SCH (09:00)
--- NOTE | 2017-02-16 23:31 | CON ---
DATE OF CONSULTATION: 02/16/2017 INITIAL INPATIENT CONSULTATION NOTE REQUESTING PHYSICIAN: Lo Weller PA-C and Dr. Cifuentes from Trauma Surgery. PRIMARY CARE PHYSICIAN: Edward Amaya M.D. PRIMARY MEDIA RELATIONS SPECIALIST: Cleveland Whitaker M.D. REASON FOR CONSULTATION: Medical management. HISTORY OF PRESENT ILLNESS: Mr. Costello is a pleasant 81-year-old white male with a recent colorful past medical history. The patient was admitted on 02/02 for fall and left hip fracture. Cardiology and Orthopedics were consulted due to the patient's extensive cardiac history and echocardiogram was ordered and completed. The patient was taken to the operating room on 02/02/2017. Echocardiogram was reviewed by Cardiology and found to be technically difficult , but an EF was around 40%-45%, which has improved from his prior and a pacemaker wire was visualized. The patient remained relatively stable and was stabilized from a cardiac standpoint and on 02/06/2017, underwent ORIF by Dr. Olvera with a nail into the femoral neck fracture. On 02/07/2017, the patient did fairly well overnight; however, he was still wearing a LifeVest and has not had any ICD shocks. Electrophysiology was consulted to make recommendations regarding need to continue and actually EP felt the amiodarone could likely be stopped after the Orthopedic Surgery and it was reasonable to consider discontinuing the LifeVest use. His interrogation revealed no arrhythmias. Patient was managed by the trauma team from 02/07/2017 to 02/10/2017. On 2016, GI was consulted for rectal bleeding that seemed to have resolved. By the time Dr. Rios had seen him on 02/07/2017, the patient had no further bleeding episodes and felt that he did not need to be aggressive with endoscopic evaluation as this this patient was immediately postop. Recommend serial H&Hs and transfuse as needed. I would scope if the patient continued to have bleeding episodes. From 02/08/2017 to 02/10/2017, the hemoglobin remained relatively stable. He did get 2 units of blood on 02/08/2017 and 1 unit of platelets in 02/09/2017, received 2 more units of blood and 1 unit of platelets. By the time I saw him on 02/10/2017, hemoglobin was 8.8. He had no further complaints. PAST MEDICAL HISTORY: 1. Chronic systolic CHF, EF has been around 35%. Most recent echo with EF of 40%-45%. 2. History of nonsustained ventricular tachycardia with a LifeVest. 3. History of coronary artery disease. PAST SURGICAL HISTORY: 1. Coronary artery bypass grafting. 2. Percutaneous intervention to the heart with stents. 3. 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 HOME MEDICATIONS: Have been reviewed. Please see the intake sheet. CURRENT HOME MEDICINES: Have been reviewed. Please see the MAR. ALLERGIES: SHELLFISH and IODINE. FAMILY HISTORY: Negative for clotting or bleeding disorder, no immune dysfunction. SOCIAL HISTORY: Significant for daily alcohol, but only admits to 2-3 drinks. Denies any IV drug use or illicit drug use and quit smoking more than 10 years ago. He lives at home with his . REVIEW OF SYSTEMS: A 10-point review of systems was performed negative. All other systems except for that as per HPI. PHYSICAL EXAMINATION: VITAL SIGNS: Temperature is 98.2, pulse 90, blood pressure 146/59, respiratory 20, satting 92% on room air. GENERAL: He is awake. He is alert. He is oriented x3. He is a thin and very weak looking. He is working with physical therapy at present and is struggling to move. HEENT: Normocephalic, atraumatic. Pupils equal and reactive bilaterally. Mucous membranes moist, had no visible lesions and no thrush. NECK: Supple. He has no lymphadenopathy, JVD or thyromegaly with normal carotid upstrokes. I do not appreciate bruits. CARDIOVASCULAR: He has normal S1 and S2. He is tachycardic. He is regular. He has no audible murmurs. LUNGS: Clear bilaterally. He has good air movement and symmetrical chest excursion. I do not appreciate any prolonged expiratory phase and no wheezes. He has some faint bibasilar crackles that seem to clear with deep inspiration. ABDOMEN: Scaphoid, nontender, nondistended. No masses or organomegaly. EXTREMITIES: Shows no cyanosis, no clubbing. Trace bilateral lower extremity edema. His left hip incision is clean, dry, and intact without any erythema or drainage. LABORATORY DATA: CMP today is fairly normal. AST is 41, ALT is 31, alkaline phosphatase is 115, albumin is low at 2.6 and white blood cell count has bumped from 8-13. Hemoglobin is 8.8, hematocrit of 26.4, and platelet count 306,000. RADIOGRAPHIC STUDIES: Hip x-ray 02/02/2017 showed a left femoral neck fracture. Chest x-ray 02/03/[address] showed [address]emaker in place. There is no acute cardiopulmonary disease. A hip x-ray on 02/06/2017 and chest x-ray on 09/2016 showed normal postop changes of the left hip and no new cardiopulmonary disease. ASSESSMENT AND PLAN: 1. Fall from same level with resultant left hip fracture. Operative intervention has been completed. The patient tolerated well. No further intervention at this point. 2. Acute blood loss anemia: Patient's hemoglobin stable at 8.8. We will transfuse. My threshold is really try to keep him between 8 and 9. 3. Gastrointestinal bleeding: Unknown if upper or lower, likely due to anticoagulation. We will hold anticoagulants at present. Gastrointestinal is on board. No indication at present for endoscopy. If he does rebleed, may need endoscopy at that point. 4. History of coronary artery disease. Currently stable. Troponins have been negative. No chest discomfort. No history of nonsustained ventricular tachycardia, remote. LifeVest interrogation shows no arrhythmias. We will be discharging at some time in the near future. 5. History of chronic systolic congestive heart failure without acute exacerbation. Watch for volume overload in the face of blood products. MTDD
== END 2017-02-13 14:42 | DRG 480 ==
LOC: ERS 16:57 → 2NO 20:07 → CCU 02-06 18:28 → 2NO 02-10 17:52
PROVIDERS: ADMIT Surgery; ATTEND Surgery
PROC: 0QS734Z Reposition Left Upper Femur with Internal Fixation Device, Percutaneous Approach (ICD-10-PCS; principal; 2017-02-06)
PROC: 30233N1 Transfusion of Nonautologous Red Blood Cells into Peripheral Vein, Percutaneous Approach (ICD-10-PCS; 2017-02-06)
PROC: 30233R1 Transfusion of Nonautologous Platelets into Peripheral Vein, Percutaneous Approach (ICD-10-PCS; 2017-02-08)
PROC: 30233N1 Transfusion of Nonautologous Red Blood Cells into Peripheral Vein, Percutaneous Approach (ICD-10-PCS; 2017-02-09)
PROC: 30233R1 Transfusion of Nonautologous Platelets into Peripheral Vein, Percutaneous Approach (ICD-10-PCS; 2017-02-09)
DX: S72.042A Displaced fracture of base of neck of left femur, initial encounter for closed fracture (principal); K55.21 Angiodysplasia of colon with hemorrhage; I50.23 Acute on chronic systolic (congestive) heart failure; L89.151 Pressure ulcer of sacral region, stage 1; I11.0 Hypertensive heart disease with heart failure; D68.32 Hemorrhagic disorder due to extrinsic circulating anticoagulants; E87.1 Hypo-osmolality and hyponatremia; D62 Acute posthemorrhagic anemia; T45.525A Adverse effect of antithrombotic drugs, initial encounter; T39.015A Adverse effect of aspirin, initial encounter; W05.0XXA Fall from non-moving wheelchair, initial encounter; G89.11 Acute pain due to trauma; R74.0 Nonspecific elevation of levels of transaminase and lactic acid dehydrogenase [LDH]; I25.10 Atherosclerotic heart disease of native coronary artery without angina pectoris; Z91.81 History of falling; I25.5 Ischemic cardiomyopathy; E03.9 Hypothyroidism, unspecified; I48.0 Paroxysmal atrial fibrillation; Z79.01 Long term (current) use of anticoagulants; Z95.2 Presence of prosthetic heart valve; Z95.1 Presence of aortocoronary bypass graft; Z95.0 Presence of cardiac pacemaker; K21.9 Gastro-esophageal reflux disease without esophagitis; E78.5 Hyperlipidemia, unspecified; Z95.5 Presence of coronary angioplasty implant and graft; I25.2 Old myocardial infarction; Z91.041 Radiographic dye allergy status; Z87.11 Personal history of peptic ulcer disease; L89.620 Pressure ulcer of left heel, unstageable; L89.892 Pressure ulcer of other site, stage 2
CPT/HCPCS: 36415; 36416; 36430; 71010; 76001; 80048; 80053; 82274; 82533; 83735; 84100; 84484; 85025; 85384; 85610; 85730; 86850; 86900; 86901; 87070; 87077; 87186; 90471; 90682; 93306; A4216; C1713; C1751; C1769; G0008; G0390; G8978-GP-CM; G8979-GP-CK; G8987-GO-CL; G8988-GO-CJ; J0696; J1642; J1644; J1720; J1940; J2250; J2405; J3010; J3475; J7050; P9016; P9035; Q2036

== ENCOUNTER 2017-02-28 07:10 | Emergency (ER) | payer MEDICARE, BC ==
[2017-02-28] MEDS ORDERED: EPINEPHrine 1 MG/10 ML Abboject SYRINGE ONE (14:46)
[2017-02-28] MEDS ORDERED: Sodium Bicarb 50 MEQ/50 ML Abboject 8.4% SYRINGE ONE (14:46)
[2017-02-28] MEDS ORDERED: Calcium Chloride 1 GM/10 ML Abboject SYRINGE ONE (14:46)
== END 2017-02-28 07:30 | disposition expired ==
LOC: ERS 07:10
DX: I46.9 Cardiac arrest, cause unspecified (principal); E78.5 Hyperlipidemia, unspecified; I10 Essential (primary) hypertension; Z87.891 Personal history of nicotine dependence
CPT/HCPCS: 31500; 36416; 36556; 92950; 96374; 96375; J0171